=== PATIENT | female | born 1945 | race Caucasian/White ===

== ENCOUNTER 2023-08-25 11:45 | Inpatient (IN) | payer OTHER ==
[2023-08-25 12:40] LABS: Absolute Lymphocytes (CBC) 0.9 K/uL (0.7-4.9); Hematocrit 42.6 % (36.0-45.0); Lymphocytes % 16.3 % (15.3-44.8); MCV 89.1 fL (80-100); MPV 9.3 fL (7.6-11.3); Platelets 229 thou/uL (152-406); RBC Red Blood Cell Count 4.78 M/uL (3.86-4.86)
[2023-08-25 12:58] LABS: Albumin 3.6 g/dL (3.4-5.0); Bilirubin Direct 0.4 mg/dL (0-0.2); Bilirubin Indirect, Calculated 0.5 mg/dL (0.2-0.8); Bilirubin Total 0.9 mg/dL (0.2-1.0); Magnesium 1.7 mg/dL (1.6-2.4); Potassium 4.6 mEq/L (3.5-5.1); Protein, Total 7.1 g/dL (6.4-8.2)
[2023-08-25 13:09] LABS: Troponin High Sensitivity 74.1 pg/mL (<58.9)
--- NOTE | 2023-08-25 13:53 | RAD REPORT ---
EXAM DESCRIPTION: RAD - Chest Single View - 08/25/2023 1:33 pm CLINICAL HISTORY: CONGESTION Chest pain. COMPARISON: No comparisons FINDINGS: Portable technique limits examination quality. Titl-nj-umafdizd pulmonary edema suspected. The heart is significantly enlarged. Trace right and smal l left pleural effusion. IMPRESSION: Moderate CHF versus volume overload pattern.
--- NOTE | 2023-08-25 14:33 | RAD REPORT ---
EXAM DESCRIPTION: CT - Chest For Pe Angio - 08/25/2023 2:13 pm CLINICAL HISTORY: Chest pain. DYSPNEA COMPARISON: Chest Single View dated 08/25/2023 TECHNIQUE: CT angiogram of the pulmonary arteries was performed with MIP. All CT scans are performed using dose optimization technique as appropriate and may include automated exposure control or mA/KV adjustment according to patient size. FINDINGS: No evidence of pulmonary thromboembolism. No acute aortic finding demonstrated. Moderate pulmonary edema. Small bilateral pleural effusions and small pericardial effusion. Cardiac size is significantly enlar ged. No concerning bony finding. IMPRESSION: No evidence of pulmonary thromboembolism. Moderate to significant CHF pattern.
[2023-08-25] MEDS ORDERED: FUROSEMIDE 40 MG/4 ML VIAL ONE ×2 (15:05→16:48)
--- NOTE | 2023-08-25 16:27 | P.HP ---
Certification for Inpatient Patient admitted to: Inpatient With expected LOS: >2 Midnights Patient will require the following post-hospital care: None Practitioner: I am a practitioner with admitting privileges, knowledge of patient current condition, hospital course, and medical plan of care. Services: Services provided to patient in accordance with Admission requirements found in Title 42 Section 412.3 of the Code of Federal Regulations Patient History Date of Service: 08/25/23 Reason for admission: New onset CHF/A-fib History of Present Illness: 78-year-old female with history of qcu-bwljwox-rvkdewybf diabetes, hypertension presents to the emergency department with chief complaint of shortness of breath progressing over the course of the last 1 week. Of note she also has significant edema of her lower extremities which she reports has been going on for about 2 years but significantly worse than normal. She was evaluated in the emergency department her labs are significant for D- dimer of 1068 creatinine 1.53 GFR 35 BUN 23-to be troponin 74.1 BNP 19,442 CTA of the chest was performed given shortness of breath, hypoxia and elevated D -dimer which revealed no evidence of PE, moderate to significant CHF pattern. Patient with 2-3+ pitting edema lower extremities. EKG also shows atrial fibrillation which would be new onset for her with a rate of around 100. ED very wishes to admit for further management of new onset CHF/atrial fibrillation - Past Medical/Surgical History -: Hypertension -: Gbx-rdwebyr-cbwlowkkt diabetes -: Tubal ligation Psychosocial/ Personal History: Lives at home with family - Family History Family History: Reviewed- Non-Contributory - Social History Smoking Status: Current every day smoker Counseled patient to stop smoking for: less than 10 minutes Alcohol use: No CD- Drugs: No Caffeine use: Yes Place of Residence: Home Review of Systems 10-point ROS is otherwise unremarkable Respiratory: Cough, Shortness of Breath, SOB with Excertion Cardiovascular: Edema Physical Examination - Physical Exam General: Alert, In no apparent distress, Oriented x3 HEENT: Atraumatic, PERRLA, Mucous membr. moist/pink Neck: Supple Respiratory: Normal air movement, Diminished, Crackles/rales Cardiovascular: Normal S1 S2, Edema (2+ edema bilateral lower extremities), Irregular heart rate/rhythm (A-fib rate 100) Gastrointestinal: Normal bowel sounds, No tenderness Musculoskeletal: No tenderness Integumentary: No rashes Neurological: Normal speech, Normal strength at 5/5 x4 extr, Normal tone, Normal affect - Studies Laboratory Data (last 24 hrs) 08/25/23 08/25/23 12:24 12:24 WBC 5.70 Hgb 14.0 Hct 42.6 Plt Count 229 Sodium 137 Potassium 4.6 BUN 23 H Creatinine 1.53 H Glucose 97 Magnesium 1.7 Total Bilirubin 0.9 AST 14 L ALT 25 Alkaline Phosphatase 81 Assessment and Plan - Plan Assessment: Acute hypoxic respiratory failure Acute/new onset CHFunknown EF Elevated troponin New onset atrial fibrillation with rapid ventricular response Diabetes mellitus type 0gta-ybzxjti-nrzqnizwc Acute kidney injury Tobacco use disorder Plan: Acute hypoxic respiratory failure Acute/new onset CHFunknown EF Elevated troponin Room air sats 88% per chart in ED Denies ever having echocardiogram in the past Is prescribed Lasix 20mg daily at home Continue with IV Lasix 40 mg twice daily for diuresis Cardiology consult and echocardiogram in place Suspect demand ischemia, denies chest pain, will trend troponins and monitor on telemetry New onset atrial fibrillation with rapid ventricular response [id number] 2 score 3 warranting anticoagulationLovenox ordered QTc 485 rate around 100 bpm Echocardiogram and cardiology consult in place, telemetry ordered Diabetes mellitus type 2pwh-fyfmpvz-tqcykwjvo ACHS Accu-Chek, sliding scale insulin A1c in the morning Acute kidney injury Possibly cardiorenal syndrome Continue diuresis overnight, recheck chemistry in the morning Consult nephrology if there is worsening Tobacco use disorder Counseled on need for cessation Smokes a pack a day DVT PPX: Therapeutic Lovenox Code status: Full Discharge Plan: Home Plan to discharge in: Greater than 2 days - Advance Directives Does patient have a Living Will: No Does patient have a Durable POA for Healthcare: No - Code Status/Comfort Care Code Status Assessed: Yes (Full code) Critical Care: No Time Spent Managing Pts Care (In Minutes): 70
[2023-08-25] MEDS ORDERED: ENOXAPARIN 80 MG/0.8 ML SQ ONE (16:32)
--- NOTE | 2023-08-25 16:36 | EDPHYS ---
Physician Documentation [facility] Name: Jewels Henriquez Age: 78 yrs Sex: Female : 1945 Arrival Date: 08/25/2023 Time: 11:45 Bed 12 Private MD: ED Physician Justin Varner HPI: 08/25 17:42 This 78 yrs old Female presents to ER via Wheelchair with complaints of Breathing kdr Difficulty. 17:42 Patient complains of increasing shortness of breath for the last week. She also has kdr some cough but no fever. Patient has been previously vaccinated for COVID. Patient otherwise is in her usual state of health. Family also brought to my attention to the bilateral lower extremity edema, ecchymosis and venous stasis.. Onset: The symptoms/episode began/occurred gradually, 1 week(s) ago. Severity of symptoms: At their worst the symptoms were mild moderate just prior to arrival, in the emergency department the symptoms are unchanged. The patient has not experienced similar symptoms in the past. The patient has not recently seen a physician. 17:42 Patient may be poorly compliant with her medication regimen. kdr Historical: - Allergies: 11:50 No Known Allergies; ll1 - PMHx: 11:50 Diabetes mellitus; Hypertensive disorder; ll1 - PSHx: 11:50 None; ll1 - Immunization history:: Adult Immunizations up to date. - Social history:: Smoking status: Patient reports the use of cigarette tobacco products, smokes one pack cigarettes per day. ROS: 17:42 Constitutional: Negative for fever, chills, and weight loss, Eyes: Negative for injury, kdr pain, redness, and discharge, ENT: Negative for injury, pain, and discharge, Neck: Negative for injury, pain, and swelling, Cardiovascular: Negative for chest pain, palpitations, and edema, Abdomen/GI: Negative for abdominal pain, nausea, vomiting, diarrhea, and constipation, Back: Negative for injury and pain, : Negative for injury, bleeding, discharge, and swelling, MS/Extremity: Negative for injury and deformity, Skin: Negative for injury, rash, and discoloration, Neuro: Negative for headache, weakness, numbness, tingling, and seizure activity. Psych: Negative for depression, anxiety, suicide ideation, homicidal ideation, and hallucinations, Allergy/Immunology: Negative for hives, rash, and allergies, Endocrine: Negative for neck swelling, polydipsia, polyuria, polyphagia, and marked weight changes, Hematologic/Lymphatic: Negative for swollen nodes, abnormal bleeding, and unusual bruising, 17:42 Respiratory: Positive for cough, dyspnea on exertion, shortness of breath, Negative for hemoptysis, orthopnea, pleurisy, wheezing, Exam: 17:42 Constitutional: This is a well developed, well nourished patient who is awake, alert, kdr and in no acute distress. Head/Face: Normocephalic, atraumatic. Eyes: Pupils equal round and reactive to light, extra-ocular motions intact. Lids and lashes normal. Conjunctiva and sclera are non-icteric and not injected. Cornea within normal limits. Periorbital areas with no swelling, redness, or edema. Neck: Trachea midline, no thyromegaly or masses palpated, and no cervical lymphadenopathy. Supple, full range of motion without nuchal rigidity, or vertebral point tenderness. No Meningismus. Chest/axilla: Normal chest wall appearance and motion. Nontender with no deformity. No lesions are appreciated. Cardiovascular: Regular rate and rhythm with a normal S1 and S2. No gallops, murmurs, or rubs. Normal PMI, no JVD. No pulse deficits. Abdomen/GI: Soft, non-tender, with normal bowel sounds. No distension or tympany. No guarding or rebound. No evidence of tenderness throughout. Back: No spinal tenderness. No costovertebral tenderness. Full range of motion. Skin: Warm, dry with normal turgor. Normal color with no rashes, no lesions, and no evidence of cellulitis. MS/ Extremity: Pulses equal, no cyanosis. Neurovascular intact. Full, normal range of motion. Neuro: Awake and alert, GCS 15, oriented to person, place, time, and situation. Cranial nerves II-XII grossly intact. Motor strength 5/5 in all extremities. Sensory grossly intact. Cerebellar exam normal. Normal gait. Psych: Awake, alert, with orientation to person, place and time. Behavior, mood, and affect are within normal limits. 17:42 Respiratory: mild respiratory distress is noted, With exertion especially, Respirations: normal, Breath sounds: rales, that are moderate, are scattered, rhonchi, that are mild, are scattered, Vital Signs: 11:51 BP 120 / 81; Pulse 96; Resp 24; Temp 97.3; Pulse Ox 95% on R/A; Weight 80.74 kg; Height ll1 5 ft. 6 in. ; Pain 0/10; 14:31 BP 116 / 74; Pulse 106; Resp 22; Pulse Ox 97% on 2 lpm NC; cm10 15:00 BP 120 / 79; Pulse 106; Resp 22; Pulse Ox 97% on 2 lpm NC; cm10 15:30 BP 123 / 77; Pulse 109; Resp 20; Pulse Ox 96% on 2 lpm NC; cm10 16:00 BP 131 / 91; Pulse 115; Resp 20; Pulse Ox 95% on 2 lpm NC; cm10 16:30 BP 129 / 97; Pulse 108; Resp 18; Pulse Ox 94% on 2 lpm NC; cm10 17:00 BP 127 / 85; Pulse 118; Resp 22; Pulse Ox 92% on 4 lpm NC; cm10 17:30 BP 116 / 68; Pulse 116; Resp 22; Pulse Ox 96% on BiPAP; cm10 18:00 BP 111 / 70; Pulse 97; Resp 23; Pulse Ox 97% on BiPAP; cm10 19:57 BP 127 / 83; Pulse 89; Resp 18; Pulse Ox 98% ; cp4 20:04 BP 114 / 85; Pulse 87; Resp 18; Pulse Ox 97% on BiPAP; cm10 11:51 Body Mass Index 28.73 (80.74 kg, 167.64 cm) ll1 11:51 Pain Scale: Adult ll1 MDM: 16:35 Patient medically screened. kdr 17:42 Data reviewed: vital signs, nurses notes, lab test result(s), radiologic studies. kdr 08/25 11:50 Order name: Basic Metabolic Panel; Complete Time: 13:47 kdr 08/25 11:50 Order name: CBC with Diff; Complete Time: 13:47 kdr 08/25 11:50 Order name: D-Dimer; Complete Time: 13:47 kdr 08/25 11:50 Order name: LFT's; Complete Time: 13:47 kdr 08/25 11:50 Order name: Magnesium; Complete Time: 13:47 kdr 08/25 11:50 Order name: NT PRO-BNP; Complete Time: 13:47 kdr 08/25 11:50 Order name: Troponin HS; Complete Time: 13:47 kdr 08/25 11:50 Order name: XRAY Chest (1 view); Complete Time: 14:29 kdr 08/25 13:48 Order name: CT Chest For PE Angio; Complete Time: 14:47 kdr 08/25 11:50 Order name: EKG; Complete Time: 11:51 kdr 08/25 11:50 Order name: Cardiac monitoring; Complete Time: 14:18 kdr 08/25 11:50 Order name: EKG - Nurse/Tech; Complete Time: 14:17 kdr 08/25 11:50 Order name: IV Saline Lock; Complete Time: 12:27 kdr 08/25 11:50 Order name: Labs collected and sent; Complete Time: 12:27 kdr 08/25 11:50 Order name: O2 Per Protocol; Complete Time: 14:17 kdr 08/25 11:50 Order name: O2 Sat Monitoring; Complete Time: 14:17 kdr 08/25 16:50 Order name: Nguyne; Complete Time: 17:09 7 Administered Medications: 14:42 CANCELLED (Physician Discretion): enoxaparin1 mg/kg Sub-Q once hb 15:12 Drug: Furosemide IVP 40 mg IVP once; give over 2 minutes Route: IVP; Site: right cm10 antecubital; 18:09 Follow up: Response: No adverse reaction cm10 16:45 Drug: Enoxaparin Sub-Q 1 mg/kg Sub-Q once Route: Sub-Q; Site: abdomen; jl7 18:09 Follow up: Response: No adverse reaction cm10 17:09 Drug: Furosemide IVP 40 mg IVP once; give over 2 minutes Route: IVP; Site: right cm10 antecubital; 18:09 Follow up: Response: No adverse reaction cm10 17:34 Drug: amiodarone IVPB 150 mg 100 ml IVPB once over 10 mins; (mix in D5W) Volume: 100 cm10 ml; Route: IVPB; Infused Over: 10 mins; Site: left forearm; 18:09 Follow up: Response: No adverse reaction; IV Status: Completed infusion; IV Intake: cm10 100ml 18:08 Drug: amiodarone IVPB 900 mg, D5W IV 500 ml IVPB at 1 mg/min continuous; for 6 hrs, cm10 then change to 0.5 mg/min Route: IVPB; Rate: 1 mg/min; Site: left forearm; 20:00 Follow up: Response: No adverse reaction; IV Status: Infusion continued upon admission cm10 Disposition Summary: 08/25/23 16:35 Hospitalization Ordered Notes: Hospitalization Status: Inpatient Admission kdr Provider: Mann Villarreal Condition: Fair kdr Problem: new kdr Symptoms: have improved kdr Bed/Room Type: Standard kdr Location: Telemetry/MedSurg (Inpatient)(08/25/23 19:48) cg Room Assignment: [facility](08/25/23 19:48) Diagnosis - Heart failure, unspecified kdr - Unspecified atrial fibrillation kdr - Diabetes Mellitus kdr Forms: - Medication Reconciliation Form kdr - SBAR form kdr - Leadership Thank You Letter kdr Signatures: Dispatcher [employer] EDMS Justin Varner MD MD kdr David Kan, COMPUTERIZED TABLE CUTTER-C COMPUTERIZED TABLE CUTTER-Cla1 Guerda Marques RN RN cg Alyce Crouch RN RN hb Clifford Laguna RN RN jl7 Zoey Pennington RN RN ll1 Khalida Cook RN RN cm10 Corrections: (The following items were deleted from the chart) 14:42 14:29 Enoxaparin Sub-Q 1 mg/kg Sub-Q once ordered. kdr hb 14:42 14:42 Enoxaparin Sub-Q 1 mg/kg Sub-Q once ordered. hb hb 17:20 16:35 Telemetry/MedSurg (Inpatient) kdr hb 17:20 16:35 kdr hb 19:48 17:20 [facility] ER HOLD hb cg 19:48 17:20 ERHOLD- hb cg
--- NOTE | 2023-08-25 16:36 | ER ---
Nurse's Notes [facility] Name: Jewels Henriquez Age: 78 yrs Sex: Female : 1945 Arrival Date: 08/25/2023 Time: 11:45 Bed 12 Private MD: Diagnosis: Heart failure, unspecified;Unspecified atrial fibrillation;Diabetes Mellitus Presentation: 08/25 11:51 Coronavirus screen: Vaccine status: Patient reports receiving the 2nd dose of the covid ll1 vaccine. Client denies travel out of the [place] in the last 14 days. cough unrelated to allergies, difficulty breathing, shortness of breath, Client presents with at least one sign or symptom that may indicate coronavirus-19. Standard/surgical mask placed on the client. Ebola Screen: Patient denies travel to an Ebola-affected area in the 21 days before illness onset. 11:51 Method Of Arrival: Wheelchair [facility] 12:15 Chief complaint: Patient states: SOB for 1 week. Slight cough. No fever. Coronavirus hb screen: Vaccine status: Patient reports receiving the 2nd dose of the covid vaccine. Client denies travel out of the [place] in the last 14 days. cough unrelated to allergies, difficulty breathing, shortness of breath. Ebola Screen: Patient denies travel to an Ebola-affected area in the 21 days before illness onset. Initial Sepsis Screen: Does the patient meet any 2 criteria? No. Patient's initial sepsis screen is negative. Does the patient have a suspected source of infection? Yes: Productive cough/pneumonia. Risk Assessment: Do you want to hurt yourself or someone else? Patient reports no desire to harm self or others. Onset of symptoms was August 19, 2023. 12:15 Method Of Arrival: Wheelchair 12:15 Acuity: DAVE 3 hb 17:09 Acuity: DAVE 2 cm10 Triage Assessment: 12:16 General: Appears uncomfortable, ill, Behavior is calm, cooperative, appropriate for hb age. Pain: Denies pain. Neuro: Reports weakness. Respiratory: Reports shortness of breath cough that is labored breathing. 18:14 Respiratory: Onset: The symptoms/episode began/occurred 1 week, the patient has cm10 moderate shortness of breath. Historical: - Allergies: 11:50 No Known Allergies; ll1 - PMHx: 11:50 Diabetes mellitus; Hypertensive disorder; ll1 - PSHx: 11:50 None; ll1 - Immunization history:: Adult Immunizations up to date. - Social history:: Smoking status: Patient reports the use of cigarette tobacco products, smokes one pack cigarettes per day. Screenin:32 [facility] ED Fall Risk Assessment (Adult) History of falling in the last 3 months, cm10 including since admission No falls in past 3 months (0 pts) Confusion or Disorientation No (0 pts) Intoxicated or Sedated No (0 pts) Impaired Gait Yes (1 pt) Mobility Assist Device Used Yes (1 pt) Altered Elimination No (0 pt) Score/Fall Risk Level 0 - 2 = Low Risk Oriented to surroundings, Maintained a safe environment, Hourly rounding (assess needs \T\ fall precautionary measures) done. Abuse screen: Denies threats or abuse. Denies injuries from another. Nutritional screening: No deficits noted. Tuberculosis screening: No symptoms or risk factors identified. Assessment: 14:00 Reassessment: Pt transferred from wheelchair to stretcher and patient became short of cm10 breath. Pt's O2 sat dropped to 88% and pt complaining of shortness of breath. Pt placed on 2L via NC and O2 sat improved. 14:00 General: Appears in no apparent distress. uncomfortable, Behavior is calm, cooperative. cm10 Neuro: No deficits noted. Level of Consciousness is awake, alert, obeys commands, Oriented to person, place, time, situation. Cardiovascular: Reports shortness of breath, Denies chest pain, Patient's skin is warm and dry. Rhythm is atrial fibrillation. Respiratory: Airway is patent Respiratory effort is even, unlabored, Respiratory pattern is regular, symmetrical, Breath sounds are diminished bilaterally. GI: No deficits noted. No signs and/or symptoms were reported involving the gastrointestinal system. : No deficits noted. No signs and/or symptoms were reported regarding the genitourinary system. EENT: No signs and/or symptoms were reported regarding the EENT system. Derm: No deficits noted. No signs and/or symptoms reported regarding the dermatologic system. 15:12 Reassessment: Pt changed into a hospital gown and purewick placed. Pt noted to have cm10 swelling to her bilateral legs and feet. 17:10 Reassessment: Pt continues to have shortness of breath. Dr. Varner made aware. Pt cm10 medicated per OCT. Nguyen catheter inserted and pts O2 increased to 4L via NC. 17:23 Reassessment: Pt continues to have shortness of breath. Respiratory called to place pt cm10 on BiPap. 17:34 Reassessment: Pt placed on bipap at this time. cm10 18:13 Reassessment: Pt tolerating BiPap well at this time. Pt states that her shortness of cm10 breath has improved. Vital Signs: 11:51 BP 120 / 81; Pulse 96; Resp 24; Temp 97.3; Pulse Ox 95% on R/A; Weight 80.74 kg; Height ll1 5 ft. 6 in. ; Pain 0/10; 14:31 BP 116 / 74; Pulse 106; Resp 22; Pulse Ox 97% on 2 lpm NC; cm10 15:00 BP 120 / 79; Pulse 106; Resp 22; Pulse Ox 97% on 2 lpm NC; cm10 15:30 BP 123 / 77; Pulse 109; Resp 20; Pulse Ox 96% on 2 lpm NC; cm10 16:00 BP 131 / 91; Pulse 115; Resp 20; Pulse Ox 95% on 2 lpm NC; cm10 16:30 BP 129 / 97; Pulse 108; Resp 18; Pulse Ox 94% on 2 lpm NC; cm10 17:00 BP 127 / 85; Pulse 118; Resp 22; Pulse Ox 92% on 4 lpm NC; cm10 17:30 BP 116 / 68; Pulse 116; Resp 22; Pulse Ox 96% on BiPAP; cm10 18:00 BP 111 / 70; Pulse 97; Resp 23; Pulse Ox 97% on BiPAP; cm10 19:57 BP 127 / 83; Pulse 89; Resp 18; Pulse Ox 98% ; cp4 20:04 BP 114 / 85; Pulse 87; Resp 18; Pulse Ox 97% on BiPAP; cm10 11:51 Body Mass Index 28.73 (80.74 kg, 167.64 cm) ll1 11:51 Pain Scale: Adult ll1 Vitals: 14:31 Cardiac Rhythm Assessment Atrial fibrillation. cm10 ED Course: 11:46 Patient arrived in ED. im 11:49 Justin Varner MD is Attending Physician. kdr 11:51 Arm band placed on. ll1 12:16 Triage completed. hb 12:24 Inserted saline lock: 20 gauge in right antecubital area, using aseptic technique. zm Blood collected. 12:27 Basic Metabolic Panel Sent. zm 12:27 CBC with Diff Sent. zm 12:27 D-Dimer Sent. zm 12:27 LFT's Sent. zm 12:27 Magnesium Sent. zm 12:27 NT PRO-BNP Sent. zm 12:27 Troponin HS Sent. zm 13:34 XRAY Chest (1 view) In Process Unspecified. EDMS 13:39 Khalida Cook, RN is Primary Nurse. cm10 14:15 CT Chest For PE Angio In Process Unspecified. EDMS 14:33 Patient has correct armband on for positive identification. Bed in low position. Call cm10 light in reach. Side rails up X2. Provided Education on: ER process and procedures. . Client placed on continuous cardiac and pulse oximetry monitoring. NIBP monitoring applied. 16:32 Mann Villarreal MD is Hospitalizing Provider. kdr 17:08 Nguyen cath inserted, using sterile technique, 16 Fr., by nc, balloon inflated, to cm10 gravity drainage, returned clear yellow urine. Patient tolerated well. Inserted saline lock: 22 gauge in left forearm, using aseptic technique. 19:31 Anna Gilliam is Primary Nurse. cp4 19:57 No provider procedures requiring assistance completed. Patient admitted, IV remains in cp4 place. Administered Medications: 14:42 CANCELLED (Physician Discretion): enoxaparin1 mg/kg Sub-Q once hb 15:12 Drug: Furosemide IVP 40 mg IVP once; give over 2 minutes Route: IVP; Site: right cm10 antecubital; 18:09 Follow up: Response: No adverse reaction cm10 16:45 Drug: Enoxaparin Sub-Q 1 mg/kg Sub-Q once Route: Sub-Q; Site: abdomen; jl7 18:09 Follow up: Response: No adverse reaction cm10 17:09 Drug: Furosemide IVP 40 mg IVP once; give over 2 minutes Route: IVP; Site: right cm10 antecubital; 18:09 Follow up: Response: No adverse reaction cm10 17:34 Drug: amiodarone IVPB 150 mg 100 ml IVPB once over 10 mins; (mix in D5W) Volume: 100 cm10 ml; Route: IVPB; Infused Over: 10 mins; Site: left forearm; 18:09 Follow up: Response: No adverse reaction; IV Status: Completed infusion; IV Intake: cm10 100ml 18:08 Drug: amiodarone IVPB 900 mg, D5W IV 500 ml IVPB at 1 mg/min continuous; for 6 hrs, cm10 then change to 0.5 mg/min Route: IVPB; Rate: 1 mg/min; Site: left forearm; 20:00 Follow up: Response: No adverse reaction; IV Status: Infusion continued upon admission cm10 Medication: 14:32 VIS not applicable for this client. cm10 Intake: 18:09 IV: 100ml; Total: 100ml. cm10 Output: 17:10 Urine: 200ml (Voided); Total: 200ml. cm10 17:10 Urine: 600ml (Nguyen); Total: 800ml. cm10 Outcome: 16:35 Decision to Hospitalize by Provider. kdr 19:57 Condition: stable cp4 19:57 Instructed on the need for admit, 19:59 Admitted to Tele accompanied by nurse, via stretcher, room 429, with oxygen, Report cm10 called to KASIA Palacios 20:14 Patient left the ED. cp4 Signatures: Dispatcher [employer] EDMS Justin Varner MD MD kdr Baxter, Heather, RN RN hb Leal, Jahala, RN RN Zoey Negro RN RN ll1 Edith Cook Itzel im Martinez, Clarissa RN RN cm10 Anna Gilliam cp4 Corrections: (The following items were deleted from the chart) 12:24 12:15 BP 183 / 106; Resp 24bpm; hb ll1 12:24 11:51 BP 120 / 81; Pulse 96bpm; Resp 24bpm; Pulse Ox 95% RA; Temp 97.3F; 80.74 kg; ll1 Height 5 ft. 6 in.; BMI: 28.7; Pain 0/10, Adult; ll1 20:00 19:57 Admitted to Med/surg accompanied by tech, via stretcher, cp4 cm10
[2023-08-25] MEDS ORDERED: AMIODARONE HCL 150 MG in D5W 100 ML IV STA (16:58)
[2023-08-25] MEDS ORDERED: AMIODARONE HCL 900 MG in Dextrose 5%-Water 482 ML IV SCH ×4 (17:00)
[2023-08-25] MEDS: INSULIN REGULAR (HUMAN) 100 UNIT/ML SQ SCH ×2 (20:07→21:00)
[2023-08-26] MEDS: INSULIN REGULAR (HUMAN) 100 UNIT/ML SQ SCH ×4 (07:30→21:00)
[2023-08-26] MEDS: FUROSEMIDE 40 MG/4 ML VIAL IV SCH ×2 (08:09→16:01)
[2023-08-26 08:22] LABS: Hematocrit 42.1 % (36.0-45.0); Lymphocytes % 12.9 % (15.3-44.8); MCV 88.5 fL (80-100); MPV 9.7 fL (7.6-11.3); Platelets 215 thou/uL (152-406); RBC Red Blood Cell Count 4.76 M/uL (3.86-4.86)
[2023-08-26 08:47] LABS: Thyroid Stimulating Hormone 2.36 uIU/mL (0.358-3.740)
[2023-08-26 08:49] LABS: Magnesium 1.8 mg/dL (1.6-2.4); Potassium 4.5 mEq/L (3.5-5.1)
[2023-08-26 08:54] LABS: Troponin High Sensitivity 271.2 pg/mL (<58.9)
--- NOTE | 2023-08-26 09:39 | P.PN ---
Date of Service: 08/26/23 Subjective: Required BiPAP overnight Tolerating BiPAP/amiodarone ROS: 10 point ROS as noted above, otherwise negative Physical exam GEN: Alert, oriented, NAD HEENT: Normal conjunctiva, sclera anicteric CV: Atrial fibrillation rate around 100, 1-2+ pitting edema lower extremities Pulm: Bilateral crackles, mild distress on BiPAP ABD: Soft, nontender, nondistended MSK: No joint tenderness Integumentary: No rashes Neuro: Normal speech, normal affect Vitals reviewed Assessment: Acute hypoxic respiratory failure Acute/new onset CHFunknown EF Elevated troponin New onset atrial fibrillation with rapid ventricular response Diabetes mellitus type 2mzs-dlmdqzg-gtsxrdaod Acute kidney injury Tobacco use disorder Plan: Acute hypoxic respiratory failure Acute/new onset CHFunknown EF Elevated troponin Room air sats 88% per chart in ED Denies ever having echocardiogram in the past Is prescribed Lasix 20mg daily at home Continue with IV Lasix 40 mg twice daily for diuresis-lower extremity edema improving Nguyen catheter in placeplaced in ED Cardiology consult and echocardiogram in place Suspect demand ischemia, denies chest pain, and monitor on telemetry Currently on BiPAP, wean off as tolerated troponins trending up mildly, now at 271, will trend New onset atrial fibrillation with rapid ventricular response [id number] 2 score 3 warranting anticoagulationLovenox ordered QTc 485 rate around 100 bpm Echocardiogram and cardiology consult in place, telemetry ordered On amiodarone drip, plan to transition to oral after 24 hours Diabetes mellitus type 3dgn-kqtabdc-gnefiazga ACHS Accu-Chek, sliding scale insulin A1c in the morning Acute kidney injury Possibly cardiorenal syndrome Continue diuresis overnight, recheck chemistry in the morning Consult nephrology if there is worsening Tobacco use disorder Counseled on need for cessation Smokes a pack a day DVT PPX: Therapeutic Lovenox 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
[2023-08-26 09:58] LABS: Specific Gravity 1.017 (1.005-1.030); Urine Bacteria None Seen /HPF (<20); Urine Bilirubin NEGATIVE (Negative); Urine Blood 2+ (Negative); Urine Clarity Clear (Clear); Urine Color Light-Yellow (Yellow); Urine Glucose NEGATIVE (Negative); Urine Mucus Slight /HPF (None Seen); Urine Protein TRACE (Negative); Urine RBC 21-50 /HPF (None Seen); Urine Urobilinogen Normal (Normal); Urine WBC Clump Rare /HPF (None Seen)
[2023-08-26] MEDS ORDERED: MORPHINE 2 MG/ML SYR IV ONE (11:14)
--- NOTE | 2023-08-26 13:09 | ECHO ---
HEIGHT: 5 ft 6 in WEIGHT: 178 lb 0.02 oz DATE OF STUDY: 08/26/[address]: David Kan NP 2-DIMENSIONAL: YES M.MODE: YES DOPPLER: YES COLOR FLOW: YES TDS: YES PORTABLE: YES DEFINITY: NO BUBBLE STUDY: NO DIAGNOSIS: NEW ONSET ATRIAL FIBRILLATION, ACUTE CONGESTIVE HEART FAILURE CARDIAC HISTORY: CATHERIZATION: NO SURGERY: NO PROSTHETIC VALVE: NO PACEMAKER: NO MEASUREMENTS (cm) DIASTOLIC (NORMALS) SYSTOLIC (NORMALS) IVSd 1.4 (0.6-1.2) LA Diam 4.8 (1.9-4.0) LVEF 18% LVIDd 4.6 (3.5-5.7) LVIDs 4.2 (2.0-3.5) %FS 8% LVPWd 1.5 (0.6-1.2) Ao Diam 2.9 (2.0-3.7) 2 DIMENSIONAL ASSESSMENT: RIGHT ATRIUM: NORMAL LEFT ATRIUM: IA RIGHT VENTRICLE: NORMAL SIZE & FUNCTION LEFT VENTRICLE: SEVERELY REDUCED EJECTION FRACTION <20% TRICUSPID VALVE: NORMAL MITRAL VALVE: MILD MITRAL REGURGITATION PULMONIC VALVE: AORTIC VALVE: MILD AORTIC STENOSIS WITH NO AORTIC SCLEROSIS PERICARDIAL EFFUSION: NONE AORTIC ROOT: LEFT VENTRICULAR WALL MOTION: DOPPLER/COLOR FLOW: COMMENTS: 1. SEVERELY REDUCED LEFT VENTRICULAR EJECTION FRACTION <20%. 2. RIGHT VENTRICLE NORMAL SIZE AND FUNCTION. 3. MILD MITRAL REGURGITATION. 4. MILD AORTIC STENOSIS WITH NO AORTIC SCLEROSIS. 5. NO PERICARDIAL EFFUSION. TECHNOLOGIST: Lenny SHARPE
[2023-08-26] MEDS: AMIODARONE HCL 900 MG in Dextrose 5%-Water 482 ML IV SCH (15:09)
[2023-08-26] MEDS: ENOXAPARIN 80 MG/0.8 ML SQ SCH (16:01)
[2023-08-26 17:29] VITALS: BMI 28.2
[2023-08-26] MEDS: ALBUTEROL 2.5 MG/3 ML NEB SOL NEB SCH (20:52)
[2023-08-26] MEDS: HYDROCODONE/APAP 5/325 MG TAB PO PRN (21:59)
[2023-08-27] MEDS: IPRATROPIUM BROM 0.5MG/2.5ML NEB SCH ×4 (01:02→19:18)
[2023-08-27] MEDS: ALBUTEROL 2.5 MG/3 ML NEB SOL NEB SCH ×6 (01:02→19:19)
[2023-08-27] MEDS: HYDROCODONE/APAP 5/325 MG TAB PO PRN ×2 (05:57→18:33)
[2023-08-27] MEDS ORDERED: VERAPAMIL HCL 10 MG/4 ML VIAL IV ONE (07:05)
[2023-08-27] MEDS ORDERED: HEPA 1000U/500MLS 2,000 UNIT/1,000 ML BAG IV ONE (07:05)
[2023-08-27] MEDS ORDERED: LIDOCAINE 1% 20 ML MDV ONE (07:05)
[2023-08-27] MEDS ORDERED: NITROGLYCERIN/D5W 25 MG/250 ML BTL IV ONE (07:05)
[2023-08-27] MEDS ORDERED: HEPARIN 5000 UNIT/ML 1 ML VIAL ONE (07:06)
[2023-08-27] MEDS ORDERED: MIDAZOLAM HCL 2 MG/2 ML INJ ONE (07:06)
[2023-08-27] MEDS ORDERED: TICAGRELOR 90 MG TABLET PO ONE (07:06)
[2023-08-27] MEDS ORDERED: FENTANYL CITR 100 MCG/2 ML ONE (07:06)
[2023-08-27] MEDS ORDERED: ASPIRIN 325 MG TAB ONE (07:07)
[2023-08-27] MEDS ORDERED: CLOPIDOGREL 75 MG TABLET ONE (07:07)
[2023-08-27] MEDS ORDERED: ATROPINE SULF 1 MG/10 ML SYR IV ONE (07:07)
[2023-08-27] MEDS ORDERED: HEPARIN 10,000 UNIT/10 ML VIAL IV ONE (07:07)
[2023-08-27] MEDS: INSULIN REGULAR (HUMAN) 100 UNIT/ML SQ SCH ×4 (07:30→21:00)
[2023-08-27] MEDS ORDERED: NA CHLORIDE 0.9% 500 ML ONE (07:36)
[2023-08-27 08:18] LABS: Absolute Lymphocytes (CBC) 0.9 K/uL (0.7-4.9); Hematocrit 45.2 % (36.0-45.0); Lymphocytes % 13.4 % (15.3-44.8); MCV 90.1 fL (80-100); MPV 9.5 fL (7.6-11.3); Platelets 179 thou/uL (152-406); RBC Red Blood Cell Count 5.02 M/uL (3.86-4.86)
[2023-08-27 08:49] LABS: Potassium 4.2 mEq/L (3.5-5.1)
[2023-08-27 08:50] LABS: Magnesium 1.7 mg/dL (1.6-2.4); Troponin High Sensitivity 359.5 pg/mL (<58.9)
--- NOTE | 2023-08-27 09:58 | P.PN ---
Date of Service: 08/27/23 Subjective: Required BiPAP overnight Tolerating BiPAP/amiodarone ROS: 10 point ROS as noted above, otherwise negative Physical exam GEN: Alert, oriented, NAD HEENT: Normal conjunctiva, sclera anicteric CV: Atrial fibrillation rate around 100, 1+ pitting edema lower extremities Pulm: Bilateral crackles, on nasal cannula now ABD: Soft, nontender, nondistended MSK: No joint tenderness Integumentary: No rashes Neuro: Normal speech, normal affect Vitals reviewed Assessment: Acute hypoxic respiratory failure Acute/new onset CHFunknown EF Elevated troponin New onset atrial fibrillation with rapid ventricular response Diabetes mellitus type 3wef-erictsb-yftajyjrk Acute kidney injury Tobacco use disorder Plan: Acute hypoxic respiratory failure Acute/new onset CHFunknown EF Elevated troponin Continue with IV Lasix 40 mg twice daily for diuresis-lower extremity edema improving Nguyen catheter in placeplaced in ED Echocardiogram with 18% EF Trops peaked 422.5 Heart catheterization performed today-no significant CAD, elevated LVEDP 27 mmHg New onset atrial fibrillation with rapid ventricular response [id number] 2 score 3 warranting anticoagulationLovenox ordered QTc 485 rate around 100 bpm Echocardiogram and cardiology consult in place, telemetry ordered On amiodarone drip, plan to transition to oral Diabetes mellitus type 7ijk-pvicegn-adsnvkfgw ACHS Accu-Chek, sliding scale insulin A1c 5.3 Acute kidney injury Nephrology consultation Continue management of acute heart failure Tobacco use disorder Counseled on need for cessation Smokes a pack a day DVT PPX: Therapeutic Lovenox 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
[2023-08-27] MEDS: FUROSEMIDE 40 MG/4 ML VIAL IV SCH ×2 (11:13→16:19)
--- NOTE | 2023-08-27 13:25 | RAD REPORT ---
EXAM DESCRIPTION: Yoanna Single View08/27/2023 1:17 pm CLINICAL HISTORY: sob COMPARISON: August 25, 2024 FINDINGS: Mild worsening in the moderate bilateral pulmonary opacities. Small pleural effusions. Marked cardiomegaly IMPRESSION: Mild worsening in moderate CHF
--- NOTE | 2023-08-27 13:40 | OP ---
Date of Procedure: 08/27/2023 Surgeon: AIMEE GRESHAM Procedures Performed: 1.Selective coronary angiogram. 2.Left heart catheterization. Indication: New drop in ejection fraction and elevated troponin. Access: 1.Right femoral artery 6-Chilean closed with StarClose. 2.Right radial artery 6-Chilean closed with TR band. Complications: None. Bleeding: Less than 20 mL. Anesthesia: Total sedation time was 1 hour. Description Of Procedure: After risks, benefits, and alternatives were explained, the patient agreed to procedure and signed informed consent. The [facility] was [facility], prepped and draped in the usual sterile fashion. Then I accessed right radial artery using a pediatric micropuncture kit, placed a 6-Chilean Slender sheath, and took 5-Chilean [place] 4.0 catheter into the aortic root over a J wire engaged the left main and the right coronary artery, took standard views and the catheter was pushed over the wire into the LV, measured the LVEDP, pullback did not re cord any gradient. Then the catheter was removed. Radial sheath was removed and the femoral sheath was removed. StarClose was used for closure of the femoral sheath and the TR band for the radial she ath. Findings: 1.Left main; large and normal. 2.LAD is normal. 3.Left circumflex; very large and dominant and normal. 4.RCA normal. 5.LVEDP is elevated at 27 mmHg. Conclusion: 1.Normal coronary arteries. 2.Elevated LVEDP. Plan: Medical management and guideline directed medical therapy for heart failure. SR/MODL Voice ID: [id number] Report ID: [id number]
--- NOTE | 2023-08-27 13:43 | EKG ---
Test Date: 2023-08-25 Test Time: 13:56:23 Nonprofit Financial Controller: DORIAN MEASUREMENT RESULTS: Intervals: Rate: 99 ND: QRSD: 122 QT: 378 QTc: 485 [place]: P: ND: QRS: -57 T: 62 INTERPRETIVE STATEMENTS: Atrial fibrillation Left axis deviation Septal infarct, age undetermined Abnormal ECG No previous ECG available for comparison Electronically Signed On 08-27-23 13:39:39 MARKETING GRAPHICS SPECIALIST by Adrien Ortiz
--- NOTE | 2023-08-27 15:14 | P.CNS ---
Date of Consult: 08/27/23 Reason for Consult: Renal failure Requesting Physician: Mann Villarreal Chief Complaint: SOB History of Present Illness: 78F w/ PMHx of Htn, DM2, & chronic BLE edema who p/w a 1-week hx of progressive SOB, found to have new-onset CHF & rapid afib. She is referred to Nephrology for renal failure. Serum creatinine is 1.5 on admission, at 1.8 today. Recent baseline renal function is unclear at this time. She received IV contrast today upon CTPE. CTPE is negative for pulmonary embolism. Troponin positive. BNP significantly elevated. She is receiving IV Lasix. Allergies No Known Allergies Allergy (Unverified 08/25/23 17:05) Home Medications: Diltiazem HCl [Cardizem Cd] 240 mg PO DAILY 08/26/23 Enalapril [Vasotec*] 1 tab PO DAILY 08/26/23 Furosemide [Lasix*] 1 tab PO DAILY 08/26/23 Metformin ER [Glucophage ER*] 1 tab PO DAILY 08/26/23 ePHEDrine sulfate [Bronkaid Max] 25 mg PO BID 08/26/23 - Past Medical/Surgical History Diabetic: Yes -: Hypertension -: Hhr-wwwqkdp-oeuwmuqhp diabetes -: hyperlipedema -: asthma -: CHF -: COPD -: Tubal ligation Psychosocial/ Personal History: Lives at home with family - Social History Smoking Status: Current every day smoker Alcohol use: No CD- Drugs: No Caffeine use: Yes Place of Residence: Home Review of Systems General: Weakness Eyes: Unremarkable ENT: Unremarkable Respiratory: Shortness of Breath, SOB with Excertion Cardiovascular: Unremarkable Gastrointestinal: Unremarkable Genitourinary: Unremarkable Musculoskeletal: Pedal edema Integumentary: Unremarkable Neurological: Unremarkable Physical Examination Temp Pulse Resp BP Pulse Ox 98.0 F 93 H 16 119/78 95 08/27/23 08:55 08/27/23 11:13 08/27/23 10:07 08/27/23 11:13 08/27/23 05:57 General: Other (appears her stated age) HEENT: Atraumatic, Normocephalic Neck: Supple Respiratory: Other (symmetric chest expansion) Cardiovascular: No rubs, No murmurs Gastrointestinal: Soft and benign, No rebound Musculoskeletal: No clubbing, Swelling Integumentary: No warmth Neurological: Normal tone Urinary: Other (no bladder distention) External genitalia: Deferred Rectal: Deferred Conclusions/Impression: # SABINA 2/2 CRS1 vs SABINA on CKD SCr 1.5 on adm, at 1.8 today Recent baseline renal function is unclear at this time Urinalysis with trace proteinuria and hematuria but no pyuria Follow-up CPK & iPTH Cont lasix IV HR control Harvey po fluid intake at least 2L/d Received IV contrast on 08/27. Monitor for contrast-induced nephropathy in the next 2-3 days. # New-onset CHF, afib w/ RVR, acute hypoxic respiratory failure Status post left heart cath on 08/27 with normal coronaries found Per Cardiology Lasix IV Do not limit by mouth fluid intake unless patient develops hyponatremia < 130 meq/L to avoid further SABINA # Hyponatremia Mild, monitor # Htn Cont current med regimen # DM2 Mngt per primary team
[2023-08-27] MEDS ORDERED: ONDANSETRON 4 MG/2 ML VIAL IV PRN (15:59)
[2023-08-27] MEDS: ENOXAPARIN 80 MG/0.8 ML SQ SCH (16:19)
[2023-08-27] MEDS: AMIODARONE HCL 900 MG in Dextrose 5%-Water 482 ML IV SCH (16:34)
[2023-08-27] MEDS ORDERED: AMIODARONE HCL 200 MG TAB PO SCH (21:00)
[2023-08-28] MEDS: ALBUTEROL 2.5 MG/3 ML NEB SOL NEB SCH ×4 (01:25→20:04)
[2023-08-28] MEDS: IPRATROPIUM BROM 0.5MG/2.5ML NEB SCH ×4 (01:25→20:04)
[2023-08-28 06:47] LABS: Absolute Lymphocytes (CBC) 0.7 K/uL (0.7-4.9); Hematocrit 39.8 % (36.0-45.0); Lymphocytes % 8.8 % (15.3-44.8); MPV 9.4 fL (7.6-11.3); Platelets 181 thou/uL (152-406); RBC Red Blood Cell Count 4.52 M/uL (3.86-4.86)
[2023-08-28 06:57] LABS: Magnesium 1.7 mg/dL (1.6-2.4); Potassium 4.1 mEq/L (3.5-5.1)
[2023-08-28] MEDS: INSULIN REGULAR (HUMAN) 100 UNIT/ML SQ SCH ×4 (07:30→20:35)
[2023-08-28] MEDS: APIXABAN 5 MG TABLET PO SCH ×2 (08:44→20:35)
[2023-08-28] MEDS: FUROSEMIDE 40 MG/4 ML VIAL IV SCH ×2 (08:45→17:17)
[2023-08-28] MEDS: AMIODARONE HCL 200 MG TAB PO SCH ×2 (08:45→20:35)
--- NOTE | 2023-08-28 11:43 | P.PN ---
Date of Service: 08/28/23 Subjective: Required BiPAP overnight Tolerating nasal cannula now ROS: 10 point ROS as noted above, otherwise negative Physical exam GEN: Alert, oriented, NAD HEENT: Normal conjunctiva, sclera anicteric CV: Atrial fibrillation rate around 100, 1+ pitting edema lower extremities Pulm: Bilateral crackles, on nasal cannula now ABD: Soft, nontender, nondistended MSK: No joint tenderness Integumentary: No rashes Neuro: Normal speech, normal affect Vitals reviewed Assessment: Acute hypoxic respiratory failure Acute/new onset CHFunknown EF Elevated troponin New onset atrial fibrillation with rapid ventricular response Diabetes mellitus type 2vnu-pyogryz-sewnzypbr Acute kidney injury Tobacco use disorder Plan: Acute hypoxic respiratory failure Acute/new onset CHFunknown EF Elevated troponin Continue with IV Lasix Nguyen catheter in placeplaced in ED Echocardiogram with 18% EF Trops peaked 422.5 Heart catheterization performed 08/27/2023-normal coronaries Continue to wean oxygen New onset atrial fibrillation with rapid ventricular response [id number] 2 score 3 warranting anticoagulation Eliquis ordered QTc 485 rate around 100 bpm Echocardiogram and cardiology consult in place, telemetry ordered On oral amiodarone Has been having multifocal atrial tachycardia at least the last 24 hours Diabetes mellitus type 8yyb-qqmtgod-xzzmvfpsf ACHS Accu-Chek, sliding scale insulin A1c 5.3 Acute kidney injury Nephrology consultation Continue management of acute heart failure Tobacco use disorder Counseled on need for cessation Smokes a pack a day DVT PPX: Eliquis 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
[2023-08-28] MEDS ORDERED: MAGNESIUM SULFATE 1 gm IVPB 1 GM/100 ML BAG IV ONE (13:15)
--- NOTE | 2023-08-28 15:06 | PN ---
Date of Progress Note: 08/28/2023 Subjective: Patient was admitted with acute kidney injury on chronic kidney disease secondary to car diorenal. Patient has CHF exacerbation. Patient was started on diuresis. Physical Examination: General: When I saw the patient, patient was on breathing treatment. Vital Signs: Blood pressure of 104/67, pulse of 90, afebrile. Chest: Crackles bilateral. Heart: S1, S2. Systolic murmur. Abdomen: Soft, nontender. Extremities: Plus edema. Neuro: Alert. No focality. Laboratory Data: Ejection fraction less than 20%. H and H 13.4/39.8. Sodium 135, potassium 4.1, bi carb 27, BUN 31, creatinine 2, calcium 8.4. Magnesium 1.7. Current Medications: The patient is on include: 1.Albuterol. 2.Eliquis. 3.Lasix 40 b.i.d. 4.Magnesium. Assessment And Plan: 1.Acute kidney injury secondary to cardiorenal still over volume. I am going to continue aggressive diuresis. 2.Hypertension. Continue to utilize blood pressure for more diuresis. 3.Respiratory failure secondary to congestive heart failure exacerbation. We will optimize the fluid status. 4.Congestive heart failure with exacerbation as above. LEWIS/BRUNILDA Voice ID: [id number] Report ID: [id number]
[2023-08-28 18:17] LABS: UR PROTEIN 16.2 mg/dL (<11.9); Urine Protein/Creatinine Ratio 0.24 ratio (<0.15)
[2023-08-28] MEDS ORDERED: AMIODARONE HCL 200 MG TAB PO SCH (21:00)
[2023-08-28] MEDS: HYDROCODONE/APAP 5/325 MG TAB PO PRN (21:14)
[2023-08-29] MEDS: IPRATROPIUM BROM 0.5MG/2.5ML NEB SCH ×3 (01:45→13:00)
[2023-08-29] MEDS: ALBUTEROL 2.5 MG/3 ML NEB SOL NEB SCH ×3 (01:45→13:00)
[2023-08-29] MEDS: HYDROCODONE/APAP 5/325 MG TAB PO PRN ×2 (02:14→16:24)
[2023-08-29] MEDS: INSULIN REGULAR (HUMAN) 100 UNIT/ML SQ SCH ×4 (07:30→19:25)
[2023-08-29] MEDS: METOPROLOL TAR 25 MG TAB PO SCH ×2 (07:51→16:24)
[2023-08-29] MEDS: AMIODARONE HCL 200 MG TAB PO SCH ×2 (07:52→19:55)
[2023-08-29] MEDS: FUROSEMIDE 40 MG/4 ML VIAL IV SCH ×2 (07:52→16:24)
[2023-08-29] MEDS: APIXABAN 5 MG TABLET PO SCH ×2 (07:52→19:55)
[2023-08-29 08:15] LABS: Albumin 3.1 g/dL (3.4-5.0); Magnesium 1.9 mg/dL (1.6-2.4); Phosphorus 4.3 mg/dL (2.5-4.9); Potassium 4.1 mEq/L (3.5-5.1)
--- NOTE | 2023-08-29 10:49 | P.PN ---
Date of Service: 08/29/23 Subjective: Required BiPAP overnight Tolerating nasal cannula now ROS: 10 point ROS as noted above, otherwise negative Physical exam GEN: Alert, oriented, NAD HEENT: Normal conjunctiva, sclera anicteric CV: Atrial fibrillation rate around 100, 1+ pitting edema lower extremities Pulm: Bilateral crackles, on nasal cannula now ABD: Soft, nontender, nondistended MSK: No joint tenderness Integumentary: No rashes Neuro: Normal speech, normal affect Vitals reviewed Assessment: Acute hypoxic respiratory failure Acute/new onset CHFunknown EF Elevated troponin New onset atrial fibrillation with rapid ventricular response Diabetes mellitus type 4zru-tydwakl-phidgobab Acute kidney injury Tobacco use disorder Plan: Acute hypoxic respiratory failure Acute/new onset CHFunknown EF Elevated troponin Continue with IV Lasix Nguyen catheter in placeplaced in ED Echocardiogram with 18% EF Trops peaked 422.5 Heart catheterization performed 08/27/2023-normal coronaries Continue to wean oxygen started on metoprolol 12.5 bid holding off on initiation of lizz/arb/mineralcorticoid given SABINA New onset atrial fibrillation with rapid ventricular response [id number] 2 score 3 warranting anticoagulation Eliquis ordered QTc 485 rate around 100 bpm Echocardiogram and cardiology consult in place, telemetry ordered On oral amiodarone Has been having multifocal atrial tachycardia at least the last 24 hours await further recs from cardiology Diabetes mellitus type 4tex-uxuplue-ikcgadfjt ACHS Accu-Chek, sliding scale insulin A1c 5.3 Acute kidney injury Nephrology consultation Continue management of acute heart failure Tobacco use disorder Counseled on need for cessation Smokes a pack a day DVT PPX: Eliquis 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
[2023-08-29] MEDS ORDERED: FUROSEMIDE 40 MG/4 ML VIAL IV ONE (11:00)
--- NOTE | 2023-08-29 11:43 | PN ---
Date of Progress Note: 08/29/2023 Subjective: The patient was admitted to the hospital with acute kidney injury secondary to cardioren al, over volume. The patient was started on diuresis. The patient is feeling better. Physical Examination: Vital Signs: Blood pressure 115/73, pulse of 84, afebrile. Chest: Crackles bilateral. Heart: S1, S2 regular. Abdomen: Soft, nontender. Extremities: Trace edema. Neurologic: Alert. No focality. Laboratory Data: Hemoglobin 13.4. Sodium 135; potassium 4.1; bicarb 29; BUN 34; creatinine 1.9, con tinued to improve. Calcium 8.5, phosphorus 4.3, magnesium 1.9, albumin 3.1, corrected calcium is 9.3 . The patient had urine output of 1800, negative of 700. Current Medications: The patient on include albuterol, Eliquis, amiodarone 200 b.i.d., metoprolol, L asix 40 b.i.d., breathing treatment, magnesium sulfate. Assessment And Plan: 1.Acute kidney injury secondary to cardiorenal. Continue current diuresis. We will give extra dose of Lasix today. 2.Hypertension, controlled, optimal. Continue current treatment. We will utilize blood pressure fo r more diuresis. 3.Congestive heart failure with exacerbation. Continue diuresis as above. 4.Hypomagnesemia, status post supplement, resolved. 5.Hyponatremia secondary to dilutional sodium, trending up. Continue diuresis. 6.Secondary hyperparathyroidism. I am going to start the patient on calcitriol. We will follow up. No need for binder for the time being. RANCHO Voice ID: [id number] Report ID: [id number]
[2023-08-29] MEDS: CALCITROL 0.25 MCG CAP PO SCH (12:59)
[2023-08-30] MEDS: ALBUTEROL 2.5 MG/3 ML NEB SOL NEB PRN (04:30)
[2023-08-30] MEDS: IPRATROPIUM BROM 0.5MG/2.5ML NEB PRN ×2 (04:30→21:01)
[2023-08-30] MEDS: METOPROLOL TAR 25 MG TAB PO SCH ×2 (05:57→17:05)
[2023-08-30 06:56] LABS: Albumin 3.2 g/dL (3.4-5.0); Phosphorus 3.5 mg/dL (2.5-4.9); Potassium 3.7 mEq/L (3.5-5.1)
[2023-08-30] MEDS: INSULIN REGULAR (HUMAN) 100 UNIT/ML SQ SCH ×4 (07:30→19:16)
[2023-08-30] MEDS: APIXABAN 5 MG TABLET PO SCH ×2 (07:50→20:06)
[2023-08-30] MEDS: AMIODARONE HCL 200 MG TAB PO SCH ×2 (07:51→20:06)
[2023-08-30] MEDS: FUROSEMIDE 40 MG/4 ML VIAL IV SCH ×2 (07:51→17:05)
--- NOTE | 2023-08-30 13:12 | P.PN ---
Date of Service: 08/30/23 Subjective: Did not require Bipap overnight tolerating NC, weaning down Working with PT ROS: 10 point ROS as noted above, otherwise negative Physical exam GEN: Alert, oriented, NAD HEENT: Normal conjunctiva, sclera anicteric CV: Atrial fibrillation rate around 100, no edema/ Pulm: Bilateral crackles, on nasal cannula now ABD: Soft, nontender, nondistended MSK: No joint tenderness Integumentary: No rashes Neuro: Normal speech, normal affect Vitals reviewed Assessment: Acute hypoxic respiratory failure Acute/new onset CHFunknown EF Elevated troponin New onset atrial fibrillation with rapid ventricular response Diabetes mellitus type 1seg-ujassct-rqdqnhxbw Acute kidney injury Tobacco use disorder Plan: Acute hypoxic respiratory failure Acute/new onset CHFunknown EF Elevated troponin Continue with IV Lasix Nguyen catheter in placeplaced in ED Echocardiogram with 18% EF Trops peaked 422.5 Heart catheterization performed 08/27/2023-normal coronaries Continue to wean oxygen started on metoprolol 12.5 bid, up titrated to 25mg bid 08/30 holding off on initiation of lizz/arb/mineralcorticoid given SABINA New onset atrial fibrillation with rapid ventricular response [id number] 2 score 3 warranting anticoagulation Eliquis ordered QTc 485 rate around 100 bpm Echocardiogram and cardiology consult in place, telemetry ordered On oral amiodarone Has been having multifocal atrial tachycardia at least the last 24 hours await further recs from cardiology Diabetes mellitus type 8wmw-stplpvh-vcjngvxuo ACHS Accu-Chek, sliding scale insulin A1c 5.3 Acute kidney injury Nephrology consultation Continue management of acute heart failure Tobacco use disorder Counseled on need for cessation Smokes a pack a day DVT PPX: Eliquis 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
--- NOTE | 2023-08-30 20:01 | PN ---
Date of Progress Note: 08/30/2023 Subjective: Seen by bedside. Doing clinically well. Appears to be breathing much better, more euvo lemic. Review of Systems: No chest pain, shortness of breath, orthopnea, or cough. No nausea, vomiting, or diarrhea. All othe r systems were reviewed, they were negative. Objective: Vital Signs: Reviewed. Head and Neck: Pupils are equal, reactive to light. Intact eye movements. No JVD. No cervical lym phadenopathy. Neck is supple. Thyroid is not enlarged. Lungs: Clear to auscultation bilaterally. No rhonchi, wheezing, or crackles. No accessory muscle u se. Heart: Regular rate and rhythm. No extra sounds. Abdomen: Soft, nontender. Bowel sounds positive. No organomegaly. No masses or hernia. No rigidi ty or rebound. Extremities: No edema, clubbing, or cyanosis. Intact pulses. Skin: No rash or nodule. Neurologic: Alert, awake, oriented x3. No acute focal deficits appreciated. Investigations: BUN 36, creatinine 1.86. Assessment And Recommendations: 1.Severe systolic heart failure with acute exacerbation. She appears to be getting euvolemic. Swit ch Lasix to by mouth 40 mg p.o. twice a day and recommend to continue metoprolol and add Entresto 24/ 26 mg twice a day if blood pressure tolerates. 2.Atrial fibrillation versus tachycardia. Heart rate is controlled. If she continues to be in this rhythm, we will plan for cardioversion which can be done as an outpatient continue amioda олег and metoprolol for now and will allow some time for possible conversion of medications and if th is does not happen, we will plan for KT-guided cardioversion as an outpatient. We will continue Eliquis. HARRIS/BRUNILDA Voice ID: [id number] Report ID: [id number]
--- NOTE | 2023-08-30 21:43 | CON ---
Date of Consultation: 08/26/2023 Reason For Consultation: Heart failure. History Of Present Illness: A 78-year-old female with past medical history of diabetes, hypertension , who presented to the emergency room with shortness of breath, lower extremity edema. Denies having any chest pain. She has orthopnea, found to be in severe heart failure and found to be in atrial fi brillation with rapid ventricular response, started on amiodarone drip. Heart rate is controlled, st arted on Lasix, and she is breathing significantly better. Past Medical History: As outlined above in the HPI. Medications: Refer to reconciliation sheet for the list. Allergies: NO KNOWN DRUG ALLERGIES. Family History: No premature coronary artery disease or cancer. Social History: She is an ex-smoker. Does not drink or use any drugs. Review of Systems: All systems reviewed and they were negative except as mentioned in the HPI. Physical Examination: Vital Signs: Reviewed. Head and Neck: Pupils are equal, reactive to light. Intact eye movements. No JVD. No cervical lym phadenopathy. Neck is supple. Thyroid is not enlarged. Lungs: Clear to auscultation bilaterally. No rhonchi, rales, or crackles. No accessory muscle use. Heart: Irregular. No extra sounds. Abdomen: Soft, nontender. Bowel sounds positive. No organomegaly. No masses or hernia. No rigidi ty or rebound. Extremities: Edema bilaterally. No clubbing, cyanosis. Intact pulses. Skin: No rash. Neurologic: Alert, awake, oriented x3. No acute focal deficits appreciated. Investigations: Labs were reviewed. Hemoglobin is 14.6, BUN 27, creatinine 1.83. Troponin 359. Assessment/recommendation: 1.Severe systolic heart failure with acute exacerbation. This is a new EF drop. Recommend to wyatt clark Lasix 40 mg IV q.12 hours. Monitor BUN, creatinine, electrolytes, and once she becomes euvolemic and can lay flat, we will plan for coronary angiogram. 2.Elevated troponin, could be due to the heart failure that she needs an ischemia evaluation. Plan for coronary angiogram and to rule out coronary artery disease as a cause of her AF drop. 3.Hypertension, blood pressure controlled. 4.Atrial fibrillation. The rate is controlled. Continue amiodarone, switch to oral. Add metoprolo l 25 mg twice a day and apixaban 5 mg twice a day. I will follow the patient with you. /BRUNILDA Voice ID: [id number] Report ID: [id number]
--- NOTE | 2023-08-31 01:37 | PN ---
Date of Progress Note: 08/30/2023 Chief Complaint: Acute kidney injury, cardiorenal syndrome. Review of Systems: Denies chest pain, palpitation. Physical Examination: Lungs: Clear to auscultation bilaterally. Heart: S1, S2. Abdomen: Soft. Extremities: Slight edema. Impression And Plan: 1.Acute kidney injury secondary to cardiorenal syndrome. Continue diuretics. The patient is on Las ix. 2.Hypertension, controlled. Continue current blood pressure medication. 3.Congestive heart failure, acute on chronic with diastolic dysfunction, on diuretics. Continue to monitor blood pressure and continue metoprolol along with Lasix. 4.Hyponatremia secondary to cardiorenal syndrome. Continue Lasix. 5.Secondary hyperparathyroidism. The patient is on calcitriol. Monitor phosphorus, magnesium, and calcium levels. EB/MODL Voice ID: [id number] Report ID: [id number]
[2023-08-31] MEDS: METOPROLOL TAR 25 MG TAB PO SCH ×2 (06:33→18:18)
[2023-08-31 07:08] LABS: Phosphorus 3.3 mg/dL (2.5-4.9); Potassium 3.6 mEq/L (3.5-5.1)
[2023-08-31] MEDS: INSULIN REGULAR (HUMAN) 100 UNIT/ML SQ SCH ×4 (07:30→19:57)
[2023-08-31] MEDS ORDERED: POTASSIUM CL SA 10 MEQ TAB PO ONE (08:06)
[2023-08-31] MEDS: FUROSEMIDE 40 MG/4 ML VIAL IV SCH ×2 (08:59→18:18)
[2023-08-31] MEDS: APIXABAN 5 MG TABLET PO SCH ×2 (09:01→20:05)
[2023-08-31] MEDS: AMIODARONE HCL 200 MG TAB PO SCH ×2 (09:01→20:05)
[2023-08-31] MEDS: ACETYLCYST 20% 800 MG/4 ML VIAL PO SCH ×2 (09:03→20:05)
[2023-08-31] MEDS: CALCITROL 0.25 MCG CAP PO SCH (12:28)
--- NOTE | 2023-08-31 17:19 | P.PN ---
Date of Service: 08/31/23 Subjective: Still on 3 L nasal cannula She was able to ambulate without oxygen, with oxygen saturation of 94% Now requiring 3 L nasal cannula Will continue to wean overnight ROS: 10 point ROS as noted above, otherwise negative Physical exam GEN: Alert, oriented, NAD HEENT: Normal conjunctiva, sclera anicteric CV: Atrial fibrillation rate controlled, no edema present Pulm: Bilateral crackles, on nasal cannula, coughing ABD: Soft, nontender, nondistended MSK: No joint tenderness Integumentary: No rashes Neuro: Normal speech, normal affect Vitals reviewed Assessment: Acute hypoxic respiratory failure Acute/new onset CHFunknown EF Elevated troponin New onset atrial fibrillation with rapid ventricular response Diabetes mellitus type [id number]-[id number]-ssqfbmjee Acute kidney injury Tobacco use disorder Plan: Acute hypoxic respiratory failure Acute/new onset CHFunknown EF Elevated troponin Continue with IV Lasix Nguyen catheter in placeplaced in ED Echocardiogram with 18% EF Trops peaked 422.5-oer Dr. Ortiz's note "Elevated troponin, could be due to the heart failure that she needs an ischemia evaluation. Plan for coronary angiogram and to rule out coronary artery disease as a cause of her AF drop." Heart catheterization performed 08/27/2023-normal coronaries Continue to wean oxygen, on 3 LNC-will evaluate for home oxygen use started on metoprolol 12.5 bid, up titrated to 25mg bid 08/30 holding off on initiation of lizz/arb/mineralcorticoid given SABINA New onset atrial fibrillation with rapid ventricular response [id number] 2 score 3 warranting anticoagulation Eliquis ordered QTc 485 rate around 100 bpm Echocardiogram and cardiology consult in place, telemetry ordered On oral amiodarone Has been having multifocal atrial tachycardia at least the last 24 hours await further recs from cardiology Diabetes mellitus type 2rxw-[id number]-tcinoagfv ACHS Accu-Chek, sliding scale insulin A1c 5.3 Acute kidney injury Nephrology consultation Continue management of acute heart failure Tobacco use disorder Counseled on need for cessation Smokes a pack a day DVT PPX: Eliquis Code status: Full Dispo: Requesting Acute Rehab Time Spent Managing Pts Care (In Minutes): 25
--- NOTE | 2023-08-31 18:51 | PN ---
Date of Progress Note: 08/31/2023 Subjective: The patient was admitted to the hospital with overvolume, acute kidney injury secondary to cardiorenal. The patient had been diuresed very well, responding very well. Objective: Vital Signs: Blood pressure 119/73, pulse of 74, afebrile. Chest: Crackles on the left base. Heart: S1, S2. Regular. Abdomen: Soft, nontender. Extremities: Trace edema. Neurologic: Alert. No focality. Laboratory Data: Hemoglobin 13.4, sodium 132, potassium 3.6, bicarb 32, BUN 37, creatinine 1.8, GFR 28. Calcium 8.7. Current Medications: The patient on, it includes: 1.Albuterol. 2.Eliquis. 3.Amiodarone 200. 4.Lasix 40 b.i.d. 5.Breathing treatment. Assessment And Plan: 1.Acute kidney injury secondary to cardiorenal, responded to current diuresis dose. I am going to c ontinue current Lasix dose and we will monitor. 2.Hypertension, controlled, optimal. 3.Hypomagnesemia. We will supplement. 4.Hyponatremia, dilutional. Continue diuresis. The patient cleared from the Renal standpoint for discharge planning. RANCHO Voice ID: [id number] Report ID: [id number]
[2023-09-01] MEDS: METOPROLOL TAR 25 MG TAB PO SCH ×2 (05:45→17:22)
[2023-09-01] MEDS: INSULIN REGULAR (HUMAN) 100 UNIT/ML SQ SCH ×4 (07:30→19:17)
[2023-09-01] MEDS: FUROSEMIDE 40 MG/4 ML VIAL IV SCH (09:03)
[2023-09-01] MEDS: AMIODARONE HCL 200 MG TAB PO SCH ×2 (09:03→19:32)
[2023-09-01] MEDS: APIXABAN 5 MG TABLET PO SCH ×2 (09:03→19:32)
[2023-09-01] MEDS: ACETYLCYST 20% 800 MG/4 ML VIAL PO SCH ×2 (09:05→19:32)
--- NOTE | 2023-09-01 13:13 | PN ---
Date of Progress Note: 09/01/2023 Subjective: Patient was admitted to the hospital with acute kidney injury secondary to cardiorenal. The patient is being diuresed aggressively. Patient responded very well. Still requiring oxygenati on. Physical Examination: Vital Signs: Blood pressure 112/72, pulse of 77. Chest: Faint rales on the left base. Heart: S1, S2. Systolic murmur. Abdomen: Soft, nontender. Extremities: Trace edema. Neuro: Alert. No focality. Laboratory Data: Hemoglobin 13.4. Sodium 132, potassium 3.6, bicarb 32, BUN 37, creatinine 1.8. Current Medications: The patient is on include: 1.Amiodarone. 2.Metoprolol. 3.Lasix 40 b.i.d. 4.Zofran. 5.Calcitriol. Assessment And Plan: 1.Acute kidney injury secondary to cardiorenal. No lab today. We will follow up lab tomorrow. I a m going to go ahead and get chest x-ray for better evaluation of her fluid status. 2.I will change her Lasix to p.o. and we will follow up the patient. 3.Hypertension, controlled, optimal. Continue current treatment. 4.Secondary hyperparathyroidism. Continue calcitriol. 5.Hyponatremia, dilutional, resolved. 6.Hypomagnesemia, status post supplement. RANCHO Voice ID: [id number] Report ID: [id number]
--- NOTE | 2023-09-01 13:29 | P.PN ---
Date of Service: 09/01/23 Subjective: She is awake and conversing well Oxygen saturation 91% on 2 L nasal cannula during examination Attempting to wean, walk test today. Working with physical therapy, ambulating in the hallway. ROS: 10 point ROS as noted above, otherwise negative Physical exam GEN: Alert, oriented, NAD HEENT: Normal conjunctiva, sclera anicteric CV: Atrial fibrillation rate controlled, no edema present, systolic murmur Pulm: still with Bilateral crackles, on nasal cannula, coughing ABD: Soft, nontender, nondistended MSK: No joint tenderness Integumentary: No rashes Neuro: Normal speech, normal affect Vitals reviewed Assessment: Acute hypoxic respiratory failure Acute/new onset CHFunknown EF Elevated troponin New onset atrial fibrillation with rapid ventricular response Diabetes mellitus type [id number]-lhpbuhv-vkwxeyqkh Acute kidney injury Tobacco use disorder Plan: Acute hypoxic respiratory failure Acute/new onset CHFunknown EF Elevated troponin Continue with IV Lasix Nguyen catheter in placeplaced in ED Echocardiogram with 18% EF Trops peaked 422.5-per Dr. Ortiz's note "Elevated troponin, could be due to the heart failure that she needs an ischemia evaluation. Plan for coronary angiogram and to rule out coronary artery disease as a cause of her AF drop." Heart catheterization performed 08/27/2023-normal coronaries Continue to wean oxygen, on 3 LNC-will evaluate for home oxygen use started on metoprolol 12.5 bid, up titrated to 25mg bid 08/30 holding off on initiation of lizz/arb/mineralcorticoid given SABINA New onset atrial fibrillation with rapid ventricular response [id number] 2 score 3 warranting anticoagulation Eliquis ordered QTc 485 rate around 100 bpm Echocardiogram and cardiology consult in place, telemetry ordered On oral amiodarone Has been having multifocal atrial tachycardia at least the last 24 hours await further recs from cardiology Diabetes mellitus type 7fut-htawiya-ybbqvcafu ACHS Accu-Chek, sliding scale insulin A1c 5.3 Acute kidney injury Nephrology consultation Continue management of acute heart failure Tobacco use disorder Counseled on need for cessation Smokes a pack a day DVT PPX: Eliquis Code status: Full Dispo: accepted to inpatient rehab on fifth floor, likely bed availability tomorrow Time Spent Managing Pts Care (In Minutes): 22
--- NOTE | 2023-09-01 14:17 | RAD REPORT ---
EXAM DESCRIPTION: Yoanna Single View09/01/2023 1:14 pm CLINICAL HISTORY: Chest pain COMPARISON: August 2023 FINDINGS: Mild to moderate bilateral pulmonary opacities have partially resolved since prior exam. Small bilateral pleural effusions Cardiomegaly IMPRESSION: Mild to moderate CHF
[2023-09-01] MEDS: FUROSEMIDE 40 MG TABLET PO SCH (17:22)
[2023-09-01] MEDS: ALBUTEROL 2.5 MG/3 ML NEB SOL NEB PRN ×2 (21:28→21:30)
[2023-09-01] MEDS: IPRATROPIUM BROM 0.5MG/2.5ML NEB PRN ×2 (21:28→21:30)
[2023-09-02] MEDS: METOPROLOL TAR 25 MG TAB PO SCH (06:21)
[2023-09-02 07:29] LABS: Phosphorus 3.7 mg/dL (2.5-4.9); Potassium 3.6 mEq/L (3.5-5.1)
[2023-09-02] MEDS: INSULIN REGULAR (HUMAN) 100 UNIT/ML SQ SCH ×2 (07:30→11:18)
[2023-09-02] MEDS: AMIODARONE HCL 200 MG TAB PO SCH (07:53)
[2023-09-02] MEDS: FUROSEMIDE 40 MG TABLET PO SCH (07:53)
[2023-09-02] MEDS: APIXABAN 5 MG TABLET PO SCH (07:53)
[2023-09-02 09:32] VITALS: O2SAT 98
[2023-09-02] MEDS: CALCITROL 0.25 MCG CAP PO SCH (11:56)
[2023-09-02 12:30] LABS: SARS-COV-2 RT PCR NEGATIVE (NEGATIVE)
[2023-09-02 12:46] VITALS: BP 104/59; TEMP 97.8
--- NOTE | 2023-09-02 14:51 | P.DS ---
Admission Date: 08/25/23 Discharge Date: 09/02/23 Disposition: TRANSFER TO INPATIENT REHAB Discharge Condition: FAIR Reason for Admission: SOB Brief History of Present Illness: Diagnosis: Acute hypoxic respiratory failure Acute/new onset CHFunknown EF Elevated troponin New onset atrial fibrillation with rapid ventricular response Diabetes mellitus type [id number]-synupxmwg Acute kidney injury Tobacco use disorder HPI 08/25/23 Jewels Henriquez is a 78-year-old female with history of gaj-lgulacu-rthzugljl diabetes and hypertension who presents to the emergency department with chief complaint of shortness of breath progressing over the course of the last 1 week. Of note she also has significant edema of her lower extremities which she reports has been going on for about 2 years but significantly worse than normal. She was evaluated in the emergency department, her labs are significant for D- dimer of 1068, creatinine 1.53, GFR 35, BUN 23, troponin 74.1,and BNP 19,442. CTA of the chest was performed given shortness of breath, hypoxia, and elevated D-dimer which revealed no evidence of PE, moderate to significant CHF pattern. Patient with 2-3+ pitting edema lower extremities. EKG also shows atrial fibrillation which would be new onset for her with a rate of around 100. ED wishes to admit her for further management of new onset CHF/atrial fibrillation. Hospital Course: Jewels Henriquez is a pleasant 78-year-old female with a past medical history significant for Hypertension and DM type 2- NIDDM who was admitted to the [facility] on 08/25/23 for new onset CHF/atrial fibrillation. Jewels presented to the ED with c/o of shortness of breath which had progressed over the course of the one week. She also had significant edema of her lower extremities which she reported has been going on for about 2 years but was significantly worse than normal. Edema has improved this admission with lasix therapy. Dr. Montenegro and Dr. Ortiz were consulted and recommendations were followed. An Echocardiogram resulted with EF of 18%. Per Dr. Ortiz's note "Elevated troponin, could be due to the heart failure that she needs an ischemia evaluation. Plan for coronary angiogram and to rule out coronary artery disease as a cause of her AF drop." LHC performed resulting with normal coranaries. She was started on lasix, metoprolol, amiodarone, and eliquis of which she has tolerated well. A storey was placed for accurate intake and output. Today, her storey has been removed and she was able to void without trouble. Dr. Montenegro has managed her kidney function during lasix treatments. Jefferson, ARB, NSAIDs, and mineralocorticoid steroid were being held with the current SABINA diagnosis. She will contiue to follow Dr. Montenegro for kidney function management. Diabetes mellitus managed with Accuchecks and SSI, she has tolerated this well with resulted Serum glucose and POC accuchecks under 200 daily. Her heart rhythm has converted to normal sinus rhythm with heart rate control in the 60s and 70s, blood pressure is stabilized, she is tolerating p.o. diet, urinating well since Storey was removed, continues on 3 L nasal cannula for oxygen supp lementation, and working well with therapy. Plans to wean oxygen while in inpatient rehab and while working with physical therapy. Jewels smoke one pack of cigarettes daily and smoking cessation education was given. On 09/02/23, Jewels Henriquez was seen on morning rounds and deemed medically stable for discharge. Jewels was discharged with instructions to schedule follow-up appointments with Dr. Montenegro, Dr. Ortiz, and PCP. Jewels was provided prescriptions for metoprolol, lasix, amiodarone, and eliquis. The patient and family members were given the opportunity to ask questions and reported no further questions. Furthermore, all questions were answered to the best of my ability. A copy of this discharge summary will be sent to the above providers to facilitate continuity of care. Today, I personally spent 55 minutes with Jewels Henriquez, of which greater than 50% of the time was spent in patient education, counseling, and coordination of care as described above. Physical exam GEN: Alert, oriented, NAD, conversing well HEENT: Normal conjunctiva, sclera anicteric CV: Atrial fibrillation rate controlled, no edema present, systolic murmur Pulm: still with Bilateral crackles, on nasal cannula, coughing ABD: Soft, nontender, nondistended MSK: No joint tenderness Integumentary: No rashes Neuro: Normal speech, normal affect Vital Signs/Physical Exam: Temp Pulse Resp BP Pulse Ox 97.8 F 65 17 104/59 L 96 09/02/23 12:00 09/02/23 12:00 09/02/23 12:00 09/02/23 12:00 09/02/23 12:00 Laboratory Data at Discharge: WBC 7.70 thou/uL (4.3-10.9) 08/28/23 06:10 Hgb 13.4 g/dL (12.0-15.0) D 08/28/23 06:10 Hct 39.8 % (36.0-45.0) 08/28/23 06:10 Plt Count 181 thou/uL (152-406) 08/28/23 06:10 Sodium 134 mEq/L (136-145) L 09/02/23 06:45 Potassium 3.6 mEq/L (3.5-5.1) 09/02/23 06:45 BUN 41 mg/dL (7-18) H 09/02/23 06:45 Creatinine 1.89 mg/dL (0.55-1.02) H 09/02/23 06:45 Glucose 110 mg/dL (74-106) H 09/02/23 06:45 Phosphorus 3.7 mg/dL (2.5-4.9) 09/02/23 06:45 Magnesium 1.9 mg/dL (1.6-2.4) 08/29/23 07:40 Total Bilirubin 0.9 mg/dL (0.2-1.0) 08/25/23 12:24 AST 14 U/L (15-37) L 08/25/23 12:24 ALT 25 U/L (13-56) 08/25/23 12:24 Alkaline Phosphatase 81 U/L (45-117) 08/25/23 12:24 Home Medications: Enalapril [Vasotec*] 1 tab PO DAILY 08/26/23 Furosemide [Lasix*] 1 tab PO DAILY 08/26/23 Metformin ER [Glucophage ER*] 1 tab PO DAILY 08/26/23 Albuterol Neb [Proventil 0.083% Neb Soln] 2.5 mg NEB [id number] PRN amp 09/02/23 Amiodarone HCl [Cordarone*] 200 mg PO BID tab 09/02/23 Apixaban [Eliquis] 5 mg PO BID 09/02/23 Calcitrol [Rocaltrol*] 0.25 mcg PO Q48H cap 09/02/23 Ipratropium Neb [Atrovent*] 0.5 mg NEB [id number] PRN amp 09/02/23 Metoprolol Tartrate [Lopressor*] 25 mg PO BID 6AM 6PM tab 09/02/23 Physician Discharge Instructions: 1. Please call and schedule a follow-up appointment with your PCP in 3-5 days - Please follow-up with your PCP for medication refills/adjustments 2. Please call and schedule a follow-up appointment with Dr. Montenegro in 3-5 days - continue dialysis as scheduled 3. Follow-up with Dr. Stern in 1 week for further cardiac management 4. 3 L nasal cannula supplemental oxygen, wean as tolerated 5. Continue with rehab and incentive spirometer use 6. Fall precaution 7. Continue renal diet 8. Return to ED if symptoms worsen Diet: Renal Activity: Fall precautions Followup: Elsy Montenegro MD [ACTIVE - CAN ADMIT] - Ren Laguna MD [Primary Care Provider] - Adrien Ortiz MD [ACTIVE - CAN ADMIT] - Time spent managing pt's care (in minutes): 55
--- NOTE | 2023-09-02 20:55 | PN ---
Date of Progress Note: 09/02/2023 Subjective: Patient was admitted with acute kidney injury secondary to cardiorenal, over volume. Pa tient diuresis very well. Patient responded very well to diuresis. Today, patient is on nasal cannu la 2 L. Physical Examination: Vital Signs: Blood pressure 104/59, pulse of 65, afebrile. Chest: Clear to auscultation. Heart: S1, S2. Regular. Abdomen: Soft, nontender. Extremities: No edema. Neuro: Alert. No focality. Laboratory Data: Hemoglobin 13.4. Sodium 134, potassium 3.6, bicarb 33, BUN 41, creatinine 1.8, becky cium 8.7. GFR 27. Current Medications: The patient is on include Lasix 40 mg b.i.d., calcitriol, enalapril, Lasix, met formin, amiodarone. Assessment And Plan: 1.Acute kidney injury secondary to cardiorenal. I am going to continue diurese the patient. Patien t is cleared from the Renal standpoint for discharge planning. 2.Hypertension. Continue to rise blood pressure for more diuresis. 3.Secondary hyperparathyroid. Resume calcitriol. 4.Anemia of chronic kidney disease, stable. 5.Congestive heart failure with exacerbation. We will continue diuresis. Patient is cleared from t he Renal standpoint for discharge planning. To follow up in the office in 2-3 weeks. RANCHO Voice ID: [id number] Report ID: [id number]
== END 2023-09-02 16:06 | DRG 286 ==
LOC: ER 11:45 → ERHOLD 16:05 → 4TH 20:00
PROVIDERS: ADMIT Hospitalist; ATTEND Internal Medicine
PROC: 5A09557 Assistance with Respiratory Ventilation, Greater than 96 Consecutive Hours, Continuous Positive Airway Pressure (ICD-10-PCS; principal; 2023-08-25)
PROC: 4A023N7 Measurement of Cardiac Sampling and Pressure, Left Heart, Percutaneous Approach (ICD-10-PCS; 2023-08-27)
PROC: B2111ZZ Fluoroscopy of Multiple Coronary Arteries using Low Osmolar Contrast (ICD-10-PCS; 2023-08-27)
DX: I11.0 Hypertensive heart disease with heart failure (principal); I50.23 Acute on chronic systolic (congestive) heart failure; J96.01 Acute respiratory failure with hypoxia; N17.9 Acute kidney failure, unspecified; E87.1 Hypo-osmolality and hyponatremia; N25.81 Secondary hyperparathyroidism of renal origin; I48.91 Unspecified atrial fibrillation; E83.42 Hypomagnesemia; E78.5 Hyperlipidemia, unspecified; E11.9 Type 2 diabetes mellitus without complications; J44.9 Chronic obstructive pulmonary disease, unspecified; F17.210 Nicotine dependence, cigarettes, uncomplicated; R77.8 Other specified abnormalities of plasma proteins; R31.9 Hematuria, unspecified; Z98.51 Tubal ligation status; Z11.52 Encounter for screening for COVID-19; Z79.01 Long term (current) use of anticoagulants; Z79.84 Long term (current) use of oral hypoglycemic drugs; Z79.899 Other long term (current) drug therapy
CPT/HCPCS: 0240U; 36415; 51702; 71045; 71275; 76937; 80048; 80069; 80076; 81001; 82550; 82570; 82947; 83036; 83735; 83880; 83935; 83970; 84132; 84156; 84300; 84439; 84443; 84484; 85025; 85379; 93005; 93306; 93458; 94010; 94640; 94660; 94760; 96365; 96366; 96372; 96375; 97116; 97161; 97530; 99152; 99153; 99285; C1893; J0282; J0461; J1644; J1940; J2001; J2250; J2270; J2405; J3010; J3475; J7040; J7060; J7613; J7644; Q9966; Q9967

== ENCOUNTER 2023-09-02 09:56 | Inpatient (IN) | payer OTHER ==
[2023-09-02 16:23] VITALS: BMI 27.8
[2023-09-02] MEDS ORDERED: D10W 250 ML BAG IV PRN (16:36)
[2023-09-02] MEDS ORDERED: GLUCAGON 1 MG/VIAL IM PRN (16:36)
[2023-09-02] MEDS: METOPROLOL TAR 25 MG TAB PO SCH (17:37)
[2023-09-02] MEDS ORDERED: ONDANSETRON 4 MG (ODT) TAB PO PRN (18:28)
[2023-09-02] MEDS ORDERED: IPRATROPIUM BROM 0.5MG/2.5ML NEB PRN (18:28)
[2023-09-02] MEDS ORDERED: ALBUTEROL 2.5 MG/3 ML NEB SOL NEB PRN (18:28)
[2023-09-02] MEDS: [UNRECOGNIZED DRUG - MIXTURE] PO SCH (20:00)
[2023-09-02] MEDS: DOCUSATE NA/SENNA CONC 1 TAB PO PRN (20:18)
[2023-09-02] MEDS: INSULIN REGULAR (HUMAN) 100 UNIT/ML SQ SCH (20:18)
[2023-09-02] MEDS: APIXABAN 5 MG TABLET PO SCH (20:18)
[2023-09-02] MEDS: AMIODARONE HCL 200 MG TAB PO SCH (20:18)
[2023-09-02 20:50] LABS: Urine Bacteria <20 /HPF (<20)
[2023-09-02 21:23] LABS: Specific Gravity 1.012 (1.005-1.030); Urine Bilirubin NEGATIVE (Negative); Urine Blood Trace (Negative); Urine Clarity Extremely Turbid (Clear); Urine Color Yellow (Yellow); Urine Glucose NEGATIVE (Negative); Urine Protein TRACE (Negative); Urine Urobilinogen 2+ (Normal)
[2023-09-03 07:43] LABS: Absolute Lymphocytes (CBC) 0.9 K/uL (0.7-4.9); Hematocrit 40.3 % (36.0-45.0); Lymphocytes % 12.4 % (15.3-44.8); MCV 87.2 fL (80-100); MPV 9.5 fL (7.6-11.3); Platelets 184 thou/uL (152-406); RBC Red Blood Cell Count 4.62 M/uL (3.86-4.86)
[2023-09-03] MEDS ORDERED: DILTIAZEM HCL 120 MG SR CAP PO SCH (08:00)
[2023-09-03 08:08] LABS: Prealbumin 15.2 mg/dL (20-40)
[2023-09-03 08:11] LABS: Magnesium 1.7 mg/dL (1.6-2.4)
[2023-09-03] MEDS: POLYETHYL GLY 3350 17 GM/DOSE PO SCH (08:20)
[2023-09-03] MEDS: CRANBERRY FRUIT EXTRACT 200 MG CAP PO SCH (08:20)
[2023-09-03] MEDS: FUROSEMIDE 20 MG TABLET PO SCH (08:36)
[2023-09-03] MEDS: AMIODARONE HCL 200 MG TAB PO SCH (11:00)
--- NOTE | 2023-09-03 13:39 | P.RH.PN ---
Estimated Length of Stay: 12 Expected Discharge Date: 09/14/23 Discharge Disposition Plan: Home Family Support: Yes Jail Goal: Mobility, Transfers, Self Care Vital Signs: Last Vital Signs Temp 97.2 F 09/03/23 08:00 Pulse 67 09/03/23 10:25 Resp 16 09/03/23 08:00 BP 101/62 09/03/23 10:25 Pulse Ox 100 09/03/23 08:00 Laboratory: Laboratory Last Values WBC 7.10 thou/uL (4.3-10.9) 09/03/23 07:08 RBC 4.62 M/uL (3.86-4.86) 09/03/23 07:08 Hgb 13.3 g/dL (12.0-15.0) 09/03/23 07:08 Hct 40.3 % (36.0-45.0) 09/03/23 07:08 MCV 87.2 fL (80-100) 09/03/23 07:08 MCH 28.8 pg (27.0-35.0) 09/03/23 07:08 MCHC 33.0 g/dL (32.0-36.0) 09/03/23 07:08 RDW 15.9 % (12.1-15.2) H 09/03/23 07:08 Plt Count 184 thou/uL (152-406) 09/03/23 07:08 MPV 9.5 fL (7.6-11.3) 09/03/23 07:08 Neutrophils % 73.6 % (41.7-73.7) 09/03/23 07:08 Lymphocytes % 12.4 % (15.3-44.8) L 09/03/23 07:08 Monocytes % 9.7 % (3.3-12.3) 09/03/23 07:08 Eosinophils % 3.6 % (0-4.4) 09/03/23 07:08 Basophils % 0.7 % (0-1.3) 09/03/23 07:08 Absolute Neutrophils 5.2 K/uL (1.8-8.0) 09/03/23 07:08 Absolute Lymphocytes 0.9 K/uL (0.7-4.9) 09/03/23 07:08 Absolute Monocytes 0.7 K/uL (0.1-1.3) 09/03/23 07:08 Absolute Eosinophils 0.3 K/uL (0-0.5) 09/03/23 07:08 Absolute Basophils 0.1 K/uL (0-0.5) 09/03/23 07:08 Sodium 134 mEq/L (136-145) L 09/03/23 07:08 Potassium 4.0 mEq/L (3.5-5.1) 09/03/23 07:08 Chloride 97 mEq/L (98-107) L 09/03/23 07:08 Carbon Dioxide 32 mEq/L (21-32) 09/03/23 07:08 Anion Gap 9.0 mEq/L (5.0-15.0) 09/03/23 07:08 BUN 32 mg/dL (7-18) H 09/03/23 07:08 Creatinine 1.77 mg/dL (0.55-1.02) H 09/03/23 07:08 Est GFR (CKD-EPI) 29 ml/min (=/>90) L 09/03/23 07:08 Glucose 94 mg/dL (74-106) 09/03/23 07:08 POC Glucose 95 mg/dL (65-120) 09/03/23 11:33 Calcium 8.8 mg/dL (8.5-10.1) 09/03/23 07:08 Magnesium 1.7 mg/dL (1.6-2.4) 09/03/23 07:08 Albumin 3.0 g/dL (3.4-5.0) L 09/03/23 07:08 Prealbumin 15.2 mg/dL (20-40) L 09/03/23 07:08 Urine Color Yellow (Yellow) 09/02/23 19:45 Urine Clarity Extremely turbid (Clear) H 09/02/23 19:45 Urine pH 6.0 (5.0-7.0) 09/02/23 19:45 Ur Specific Rawlings 1.012 (1.005-1.030) 09/02/23 19:45 Glucose (UA)(Auto) Negative (Negative) 09/02/23 19:45 Urine Ketones Negative (Negative) 09/02/23 19:45 Urine Blood Trace (Negative) H 09/02/23 19:45 Urine Nitrite Negative (Negative) 09/02/23 19:45 Urine Bilirubin Negative (Negative) 09/02/23 19:45 Urine Urobilinogen 2+ (Normal) H 09/02/23 19:45 Ur Leukocyte Esterase 500 Nereyda/uL (Negative) H 09/02/23 19:45 Urine RBC 5-10 /HPF (None Seen) H 09/02/23 19:45 Urine WBC 20-50 /HPF (<5) H 09/02/23 19:45 Ur Squamous Epith Cells <5 /HPF (None Seen) 09/02/23 19:45 Amorphous Crystals Trace /HPF (None Seen) 09/02/23 19:45 Urine Bacteria <20 /HPF (<20) 09/02/23 19:45 Hyaline Casts 0-5 /LPF (None Seen) 09/02/23 19:45 Urine Culture Reflexed Reflexed 09/02/23 19:45 Urine Total Protein Trace (Negative) H 09/02/23 19:45 Weight: 175 lb 6.4 oz Physician Update: Labs reviewed and are stable. Mildly low Na, and Cl, elevated cafeteria cook 1.77. Nepro for low prealbumin. CGA for bed mobility, min assistance for supint to sit, transfers min to mod assistance. 135' with min assist and 5 steps with min assistance. Decreased shoulder flexion due to arthritis. Min assistance bathing, lower body dressing and grooming. Summary: Patient's care plan and terminal supervisor goals have been reviewed and revised as necessary. Please see the Rehabilitation Signature page for all necessary signatures.
[2023-09-03] MEDS: LOPERAMIDE HCL 2 MG CAPSULE PO PRN (14:57)
[2023-09-03] MEDS: NEPRO SHAKE 237 ML CAN PO SCH (20:09)
--- NOTE | 2023-09-04 02:18 | HP ---
Date of Admission: 09/02/2023 Time Of Service: 2 p.m. Chief Complaint: "I have shortness of breath and became weak." History Of Present Illness: Ms. Henriquez is a 78-year-old patient with hypertension, noninsulin-dependen t diabetes mellitus, who came to [facility] on August 27 with shortness of breath and worsen ing swelling in the lower extremities over a week. She was seen 2 years ago and diagnosed with CHF. However, she did worsen upon arrival. Blood work showed elevated creatinine of 1.53, BUN elevated t o 23, D-dimer of 1068 with BNP elevated at 19,442. CT angiogram of the chest showed no evidence of p ulmonary embolus, but moderate to significant CHF pattern. She had 3+ pitting edema in the lower ext remities. Echocardiogram showed significantly reduced left ventricular ejection fraction of less colton n 20. She was treated with amiodarone, Eliquis, and BiPAP. She received that from August 26 to . She was transitioned to 4 L of oxygen by nasal cannula. She had oxygen saturations around 88 . She was doing well and actually improved oxygen saturation around 94% with 2 L of oxygen via nasal cannula. She also, however, developed distal weakness in the lower extremities and upper extremitie s and required nzkodkui-gj-hamjgbg assistance to perform activities of daily living to transfer and b egin to ambulate. This was her prior level of functioning and she was therefore felt to b e a good candidate for inpatient rehabilitation where she will receive physical, occupational, and sp eech therapy and management of her comorbid conditions. Past Medical History: As noted above. Past Surgical History: Tubal ligation. Allergies: NO KNOWN DRUG ALLERGIES. Current Medications: Albuterol nebulizer 2.5 mg every 6 hours as needed, Cordarone 100 mg twice sumanth y, Eliquis 5 mg twice daily, calcitriol 0.25 mg daily, Lasix 20 mg daily, shake 237 mL twi ce daily, Atrovent nebulizer 0.5 mg nebulizer every 6 hours as needed, Imodium 2 mg every 4 hours, me latonin 3 mg at bedtime, Lopressor 25 mg twice daily, Zofran 4 mg every 6 hours as needed, Senokot-S 2 at bedtime. Family History: Noncontributory. Laboratory Studies: White blood cell count 7.1, hemoglobin 13.3, platelets 184. Sodium 134, potassi um 4.0, chloride 98, carbon dioxide 32, BUN also 32, creatinine 1.77, glucose 94, calcium 8.8, magnes ium 1.7, albumin 3.0, prealbumin 15.2. Urinalysis shows extreme turbidity, trace blood, 2+ urobilino gen, 500 esterase, white blood cells 20 to 50, bacteria less than 20, trace of protein. Current Level Of Functioning: Currently supervision for eating, oral hygiene. Moderate assistance f or toileting, toilet hygiene. Maximum assistance for bathing. Supervision for upper body dressing. Moderate assistance for lower body dressing. Moderate assistance for donning and doffing shoes. Ro lling right to left, left to right moderate assistance. Transfers from bed to chair to toilet to aiden wer moderate assistance. Ambulation, she covered 40 feet with moderate assistance. Review of Systems: She did have some diarrhea after eating lunch. She has Imodium now on board. Otherwise, shortness o f breath with some swelling in the lower extremities. No fevers, no chills. Mild myalgias, arthralg ias. No rash. No psychiatric complaints. Physical Examination: Vital Signs: Blood pressure 101/62, pulse 67, respiratory rate 16, temperature 97.3, oxygen saturati on 100%. General: Ms. Henriquez is resting in bed. She is in no acute distress. Daughter is at bedside. HEENT: She is normocephalic, atraumatic. Sclerae anicteric. Oropharynx pink and moist. Lungs: She has decreased breath sounds bilaterally. Extremities: 1 to 2+ pitting edema in the lower extremities. Neurologic: Otherwise, in terms of cranial nerves, she has no focal deficits. On motor, arms and le gs, no focal neurological deficits noted in the extremities. Rehab And Medical Assessment And Plan: She is admitted to the inpatient rehabilitation unit with imp airment category 06, neurological condition. Her impairment group code is 03.8, neuromuscular disord er. 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 Comorbidities: Renal injury, decreas ed mobility, decrease in physical functioning, diastolic congestive heart failure, diabetes mellitus type 2, dysphagia, elevated troponins, hypertension, hyperglycemia, hyponatremia, diffuse weakness, a trial fibrillation with rapid ventricular response. Plan: 1.She will have physical, occupational, and speech therapy for 3-1/2 hours, 5 of 7 days. 2.She will have medications for comorbid conditions continued including for COPD. She will have the nebulizers as noted, amiodarone for heart rate control, vitamin D for low vitamin D level, Lasix for fluid management, Robitussin for cough, Imodium for her diarrhea, Lopressor for heart rate control, melatonin for insomnia, Zofran for nausea. Comorbidities That Are Impacting Her Rehabilitation: The CHF issues will be monitored by repeat ches t x-ray, daily weights, calf circumference to see if she is gaining weight, which may be fluid retent ion and Lasix may be adjusted. Electrolytes will be followed as well. Otherwise, risk of deep vein thrombosis is there. If need be, she will have SCDs in place and she will have as well the Eliquis, which is on board 5 mg twice daily. Rehab Specific Plan: 1.Ms. Henriquez will have physical, occupational, and speech therapy for 3-1/2 hours, 5 of 7 days to impr ove her ability to transfer from bed to chair to toilet to shower, to mobilize wheelchair 250 feet, t o be able to ambulate 250 feet with a rolling walker up and down 10 steps and all with modified indep endence. Also to perform her expression, her comprehension, and her cognitive functioning with modif ied independence. 2.Ms. Henriquez has a good understanding of the process of admission to the inpatient rehabilitation [facility], in that she will benefit from the multidisciplinary approach to her care. If need be, assistan ce from the pulmonary service, hospitalist service, and cardiac service will be consulted. She will have 24 hours a day intermediate and physician evaluation on a daily basis along with charge nurse to address her discharge needs such as wheelchair, walker, and potential home health or skilled nurs ing. Barriers To Discharge: Currently, her CHF may worsen. However, at this point, it is managed with fl uid management, Lasix, which is her diuretic, but she will not be over diuresed and the balance will be sought for the patient going home, in addition fluid restriction if need be. However, the comorbi dities do not negatively impact her. Estimated Length Of Stay: About 12 days. Disposition: Home with family and home health. Prognosis: Good. Rehab Goals: 1.Become independent with upper and lower body dressing, toileting, showering, donning and doffing s hoes. 2.Independently ambulate 250 feet with a rolling walker. 3.Independently propel a wheelchair 250 feet. 4.Independently go up and down 10 steps with bilateral handrails. 5.Independently perform cognitive functioning including medication management and all safety awarene ss issues. The above goals were reviewed with Ms. Henriquez and she is agreement. By signing this document, I acknowledge I personally performed a full physical examination on Ms. Luz johnston no later than 24 hours after her admission to the inpatient rehabilitation facility and determined that she is able to tolerate the above course of treatment at an intensive level for a reasonable per iod of time. A detailed individualized plan of care for her will be completed by hospital day 4 base d on the preadmission screen, history and physical and therapy evaluations. ROSEY Voice ID: [id number]
[2023-09-04] MEDS: guaiFENesin 100 MG/5 ML UCUP PO PRN (03:35)
[2023-09-04] MEDS ORDERED: POLYETHYL GLY 3350 17 GM/DOSE PO PRN (07:01)
[2023-09-04] MEDS: CALCITROL 0.25 MCG CAP PO SCH (09:57)
[2023-09-04] MEDS: AMIODARONE HCL 200 MG TAB PO SCH (14:07)
[2023-09-04] MEDS ORDERED: INSULIN REGULAR (HUMAN) 100 UNIT/ML SQ SCH (16:30)
[2023-09-04] MEDS: MAGNESIUM OXIDE 400 MG TAB PO SCH (19:58)
[2023-09-04] MEDS: INSULIN REGULAR (HUMAN) 100 UNIT/ML SQ SCH (19:59)
[2023-09-05] MEDS: MELATONIN 3 MG TABLET PO PRN (19:54)
[2023-09-06] MEDS: DOCUSATE NA/SENNA CONC 1 TAB PO SCH (08:04)
--- NOTE | 2023-09-06 08:58 | RAD REPORT ---
EXAM DESCRIPTION: RADChest Single View09/06/2023 8:27 am CLINICAL HISTORY: ff up chf COMPARISON: Chest Single View dated 09/01/2023; Chest Single View dated 08/27/2023; Chest Single View d ated 08/25/2023; Chest For Pe Angio dated 08/25/2023 TECHNIQUE: Portable AP view of the chest. FINDINGS: Stable mild central interstitial prominence which may relate to mild central congestion/CH F. Elevation of the left hemidiaphragm again seen with adjacent atelectasis. No focal airspace opacit y. No pneumothorax or effusion. Stable cardiomegaly. Mediastinal contours are unremarkable. IMPRESSION: Stable findings, as above.
--- NOTE | 2023-09-06 09:25 | P.CNS ---
Date of Consult: 09/06/23 Reason for Consult: painful toenails Allergies No Known Allergies Allergy (Unverified 08/25/23 17:05) Home Medications: Furosemide [Lasix*] 1 tab PO BID 08/26/23 Metformin ER [Glucophage ER*] 1 tab PO DAILY 08/26/23 Albuterol Neb [Proventil 0.083% Neb Soln] 2.5 mg NEB [id number] PRN amp 09/02/23 Amiodarone HCl [Cordarone*] 200 mg PO BID tab 09/02/23 Apixaban [Eliquis] 5 mg PO BID 09/02/23 Calcitrol [Rocaltrol*] 0.25 mcg PO Q48H cap 09/02/23 Ipratropium Neb [Atrovent*] 0.5 mg NEB [id number] PRN amp 09/02/23 Metoprolol Tartrate [Lopressor*] 25 mg PO BID 6AM 6PM tab 09/02/23 ePHEDrine sulfate [Bronkaid Max] 25 mg PO BID 09/02/23 - Past Medical/Surgical History Diabetic: Yes -: Hypertension -: Tnj-vzikibe-ltyanbcsf diabetes -: hyperlipedema -: asthma -: CHF -: COPD -: Tubal ligation Psychosocial/ Personal History: Lives at home with family - Social History Smoking Status: Current every day smoker Alcohol use: No CD- Drugs: No Caffeine use: No Place of Residence: Home Review of Systems 10-point ROS is otherwise unremarkable Physical Examination Temp Pulse Resp BP Pulse Ox 96.8 F 60 19 108/56 L 96 09/06/23 06:42 09/06/23 08:05 09/06/23 06:42 09/06/23 08:05 09/06/23 06:42 General: Alert, In no apparent distress, Oriented x3 Cardiovascular: No edema, Abnormal pulses (0/4 dp/pt pulses bilateral) Capillary refill: <2 Seconds Musculoskeletal: No clubbing, No swelling, No contractures, No erythema, No tenderness, No warmth Integumentary: No rashes, No breakdown, No significant lesion, No tenderness/swelling, No erythema, No warmth, No cyanosis, Other (Thickened hypertrophic nails with subungual debris x 10) Neurological: Sensation intact - Problems (1) Tinea unguium Current Visit: Yes Status: Acute (2) Generalized atherosclerosis Current Visit: Yes Status: Acute Conclusions/Impression: Mechanical debridment of nails at bedside x 10
[2023-09-06] MEDS ORDERED: EPHEDRINE PO PRN (19:47)
[2023-09-06] MEDS ORDERED: GUAIFENESIN PO PRN (19:47)
[2023-09-06] MEDS: levoFLOXacin 500 MG TAB PO SCH (20:31)
[2023-09-06 23:49] LABS: Specific Gravity 1.013 (1.005-1.030); Urine Bacteria None Seen /HPF (<20); Urine Bilirubin NEGATIVE (Negative); Urine Blood Negative (Negative); Urine Clarity Clear (Clear); Urine Color Light-Yellow (Yellow); Urine Glucose NEGATIVE (Negative); Urine Protein NEGATIVE (Negative); Urine RBC <5 /HPF (None Seen); Urine Urobilinogen Normal (Normal)
--- NOTE | 2023-09-07 20:09 | PN ---
Date of Progress Note: 09/07/2023 Time Of Service: 2:25 p.m. Subjective: Ms. Henriquez is in bed. She said she had a lot of therapy today and she is somewhat tired a fter therapy, but was able to complete what she needed to do. She does have oxygen via nasal cannula , but when therapy was done it was without oxygen and her saturation remained around 94. Review of Systems: No fevers or chills. No nausea, vomiting, myalgias, arthralgias, rash, headache, weight change. She feels weakness. Physical Examination: Vital Signs: Blood pressure 132/56, pulse of 82, respiratory rate 18, temperature 97.2, ox saturatio n 97%. She does have some low blood pressures earlier today and her diuretic was decreased. She had orthostatic changes where sitting blood pressure 100/61, pulse of 68 and standing blood pressure inc reased to 122/56, pulse of 73. HEENT: Otherwise she is normocephalic, atraumatic. Sclerae are anicteric. Oropharynx pink and mois t. Neck: Supple. Chest: Clear. Heart: Regular. Extremities: She does have diffuse proximal more than distal weakness in lower extremities with slig ht improvement. Laboratory Studies: Blood glucose ranged from 117 to 146. Sodium 135, potassium 4.0, chloride 98, c arbon dioxide 34, creatinine 1.73 on the 14 and will be repeated in the morning. Beta natriuretic peptide elevated at 10,382 on the 14th. Calcium 9.0. Urinalysis on the was significantly abnor mal, but a repeat done on the completely normal. Her urine did grow Pseudomonas aeruginosa and E coli and again a repeat is done. She likely has a potential for colonization. E coli is pansensit ronni. She will have continued cranberry pills and significant oral hydration given her CHF within par ameters. Medications: Albuterol nebulizer 2.5 mg 6 hours as needed, Cordarone 100 mg twice daily, Eliquis 5 m g twice daily, Rocaltrol 0.25 mg every 48 hours, Nepro shake 237 mL twice daily, Lasix now 20 mg sumanth y, perphenazine 200 mg every 4 hours as needed, insulin sliding scale, Atrovent 0.5 mg every 6 hours as needed, Imodium 2 mg every 4 hours as needed, magnesium oxide 400 mg twice daily, melatonin 3 mg a t bedtime, Lopressor 25 mg twice daily, Zofran 4 mg q.6 hours as needed, Senokot S 1 twice daily. Progress Made With Physical And Occupational Therapy: Today with her occupational therapy, she was i ndependent with supine to sit transfers, standby with edge of bed to stand pivot transfer to wheelcha ir, independent with toilet hygiene, clothing management, upper body dressing independent, lower body dressing supervision. Did engage in wheelchair pushups 4 x 5 sets and standing to exam stand sets w ith grab bars. In terms of speech, recall 3 of 4 unrelated pictures of 5 minutes on first attempt an d 4 of 4 after 5 minutes. Physical Therapy, she did ambulate with a rolling walker 125 feet and anot her 100 feet with contact guard assistance. She was able to go up and down 10 steps with standby ass istance using bilateral handrails. Ms. Henriquez is making good progress overall with physical, occupational, and speech therapy. Assessment: Ms. Henriquez is a 78-year-old patient admitted to the rehabilitation unit with CHF myopathy and she is recovering her strength well and being able to do the mobilization now without oxygen. Sh esha has renal insufficiency with chronic diastolic congestive heart failure, diabetes mellitus, elevate d troponins, elevated beta natriuretic peptide, hypertension, hyponatremia, diffuse weakness, and atr ial fibrillation with history of rapid ventricular response. Plan: 1.Continue with physical, occupational, speech therapy for 3-1/2 hours, 5/7 days. 2.Continue with comorbid condition medications as noted above including for COPD, Lasix for fluid ma nagement, but that will be held for systolic blood pressure is being low and continue with our DVT pr ophylaxis and stroke risk reduction using Eliquis 5 mg twice daily, Nepro shake for her malnutrition, ipratropium nebulizer for COPD, Senokot-S for constipation, Zofran for nausea. 3.She will again continue with physical, occupational, and speech therapy for 3-1/2 hours, 5/7 days. Comorbidities That Continue To Impact Her Rehabilitation: Currently, she has some very low blood pre ssures likely from over diuresis. Lasix has been cut back. Fluid management within the I's and O's being monitored, daily weights being requested as well. We will have an interval chest x-ray as the most recent chest x-ray done on the did suggest unchanged stable pattern, but there was mild int erstitial prominence with mild central congestion and therefore we will encourage incentive spirometr y. LB/MODL Voice ID: [id number] Report ID: [id number]
[2023-09-08] MEDS: FUROSEMIDE 20 MG TABLET PO SCH (07:44)
--- NOTE | 2023-09-08 20:30 | PN ---
Date of Progress Note: 09/08/2023 [id number] Progress Note. Time Of Service: 1:35 p.m. Subjective: Ms. Henriquez is sitting on side of the bed and she said she feels somewhat tired, but has go ne through all of the therapy for the morning session and mostly off oxygen by nasal cannula. Objective: No fevers, chills, nausea, vomiting, myalgias, arthralgias, rash, headache, weight change . No psychiatric complaints. No gastrointestinal or genitourinary complaints. Physical Examination: Vital Signs: Blood pressure 107/63, pulse 70, respiratory rate 16, temperature 97.3. She did have s ome low blood pressures earlier in the day around 6 o'clock in the morning. While lying, blood press ure 91/52, pulse of 64. While sitting, blood pressure 96/57, pulse 59, and while standing, blood pre ssure 92/61, pulse of 69. She did have some fatigue with that. Otherwise in terms of examination, n eurologic: No focal neurological deficits. Mild diffuse weakness of lower extremities. She is using incentive spirometry, but not very conscientiously. Laboratory Studies: Blood sugars ranged from 111-159. Medications: Her medications have been reviewed and remain unchanged. Progress Made With Physical, Occupational, And Speech Therapy: Today, with physical therapy, she amb ulated 250 feet, another 100 feet 3 times, was on the room air and oxygen saturation was maintained b etween 90% and 100%. She did, however, on occasion the oxygen saturation dropped to 87% after she co mpleted 2 laps. With occupational therapy, she tolerated 5 minutes of standing, bilateral upper extr emity aerobic exercises, multiple rest breaks were required to complete a 10 sets of stand s with multiple rest break. Oxygen saturation remained above 93%. In terms of speech, she recalled 4/4 unrelated pictures after 7 minutes without cues. Convergent thinking gives 80% accuracy and mode rate cues, she sequenced four words into logical sequencing with 70% accuracy and maximum verbal cues . Ms. Henriquez is making good overall progress with physical, occupational, speech therapy. Assessment: Ms. Henriquez is a 78-year-old patient admitted to the rehabilitation unit with CHF myopathy from which she is beginning to recover fairly well. She, actually, most of the time, do not require oxygen. However, if she does 500 feet of walking, the oxygen saturation did drop to 87%. She has di astolic congestive heart failure, diabetes mellitus, elevated troponins, which improved, hypertension , hyponatremia, diffuse weakness, atrial fibrillation with rapid ventricular response. Plan: 1.Continue physical, occupational, and speech therapy for 3.5 hours, 5 of 7 days. 2.Her multiple comorbid conditions are managed by continuing medications including Eliquis for DVT p rophylaxis, Senokot for constipation and Zofran for nausea. She has ipratropium nebulizer for COPD. Her blood pressure medications will be held for systolics less than 120 and she is doing well with t hat. If need be, fluid will be given. The patient is encouraged to drink some water and may receive some normal saline gently. Comorbidities That Continue To Impact Rehabilitation: She does have low blood pressures with congest ronni heart failure and is at risk for volume overload. Her recent chest x-ray showed stable findings. The patient was encouraged to use incentive spirometry, but she may again require mild hydration fr om the IV normal saline if she is not able to manage to increase oral intake of water. LB/MODL Voice ID: [id number] Report ID: [id number]
[2023-09-09 07:38] LABS: Absolute Lymphocytes (CBC) 1.2 K/uL (0.7-4.9); Hematocrit 38.9 % (36.0-45.0); Lymphocytes % 16.4 % (15.3-44.8); MCV 86.6 fL (80-100); MPV 9.4 fL (7.6-11.3); Platelets 261 thou/uL (152-406); RBC Red Blood Cell Count 4.49 M/uL (3.86-4.86)
[2023-09-09 08:00] LABS: Albumin 3.2 g/dL (3.4-5.0); Magnesium 2.5 mg/dL (1.6-2.4); Potassium 4.7 mEq/L (3.5-5.1); Prealbumin 18.8 mg/dL (20-40)
--- NOTE | 2023-09-09 19:23 | PN ---
Date of Progress Note: 09/09/2023 Time Of Service: 1:35 p.m. Subjective: Ms. Henriquez is sitting on side of the bed. Family in the room. She is without oxygen via nasal cannula and is showing no evidence of any shortness of breath at this point. She denies any co mplaints and is happy to be ready for home in not too distant time. Review of Systems: No fevers or chills. No significant myalgias or arthralgias, although she did have some loose stools around 3 today and some mild upset stomach and she is addressed with Imodium and that has subsided. Physical Examination: Vital Signs: Blood pressure 102/55, pulse 67, respiratory rate 16, temperature 97.5. She did have o rthostatic blood pressures while lying blood pressure 91/50, pulse 66, while sitting blood pressure 9 6/51, pulse 109, and while standing blood pressure 101/64, pulse 67. HEENT: Otherwise, she is normocephalic, atraumatic. Sclerae anicteric. Oropharynx is moist. Neck: Supple. Chest: Clear. Extremities: Show no significant edema or cyanosis. Laboratory Studies: Complete blood count with differential is essentially normal. Her sodium 135, p otassium 4.7, chloride 100, carbon dioxide 31, BUN 48, creatinine 2.15, prealbumin 18.8. Note, creat inine did increase slightly from 1.73 on the 14th to 2.15 reflecting some dehydration. Blood sugars range from 105 to 141. X-ray/imaging: No new x-rays or imaging. Medications: She is on albuterol nebulizer, Cordarone for heart rate control, for atrial fibrillatio n, Eliquis 5 mg twice daily, Lasix 20 mg daily will be cut to 10 mg daily. She is on guanfacine. Sh e is receiving sliding scale insulin. She has Imodium for diarrhea as mentioned, melatonin for insom ida, metoprolol for heart rate control, Senokot S will be held as she has some loose stools. Progress Made With Physical, Occupational, And Speech Therapy: Today with physical therapy, ambulati ng with a rolling walker 250 feet with standby assistance and she did that twice, [id number] transf ers done independently, [id number]-oq-[id number] transfers done independently. With occupational therapy, indep endent with toilet hygiene, upper and lower body dressing, bathing, lower body dressing also independ ent. She is somewhat impulsive. The staff notes with speech therapy, BIMS score, she scored 15/15, on the SLUMS score 28/30 indicating normal cognitive functioning. Ms. Henriquez is making excellent progress with her speech therapy and physical and occupational therapy. She does appear to be somewhat dehydrated, Lasix cut back some, one to half dosage. Assessment: Ms. Henriquez is a 78-year-old patient in the rehabilitation unit with CHF myopathy and she i s recovering very well. She is ambulating now without any significant need for oxygen, diastolic con gestive heart failure managed, diabetes mellitus managed, hypertension and hypotension still slightly uncontrolled. She has atrial fibrillation addressed with heart rate control. Plan: 1.Continue physical, occupational, speech therapy. 2.Again cut back her diuretic to half dose. 3.We will encourage some gentle hydration and we will continue DVT prophylaxis and risk of stroke wi th Eliquis full strength and for her loose stools, Imodium to be in place and all other comorbidities are addressed by continuing medications noted. Comorbidities That Continue To Impact Rehabilitation: Currently, she has loose stools, which are imp roving with Imodium and her creatinine has bumped up. We will cut back on her diabetic dosage. LB/MODL Voice ID: [id number] Report ID: [id number]
[2023-09-09] MEDS ORDERED: MAGNES/ALUMIN/SIMET 30ML UCUP PO PRN (20:22)
[2023-09-10 06:47] VITALS: BP 109/58; TEMP 97.3
[2023-09-10] MEDS: FUROSEMIDE 20 MG TABLET PO SCH (08:27)
[2023-09-10 10:01] VITALS: O2SAT 94
--- NOTE | 2023-09-24 03:47 | DS ---
Date of Discharge: 09/10/2023 Discharge Diagnoses: Congestive heart failure related myopathy, renal insufficiency, decrease in phy sical functioning, diabetes mellitus type 2, dysphagia, hypertension, hyponatremia, atrial fibrillati on with rapid ventricular response. Discharge Condition: Good. Discharge Activity: Weightbearing as tolerated. Diet: Diabetic diet. Allergies: NO KNOWN DRUG ALLERGIES. Medications: Amiodarone 100 mg twice daily, ephedrine sulfate 25 mg twice daily, Lopressor 25 mg twi ce daily, Rocaltrol 0.25 mcg every 48 hours, Eliquis 5 mg twice daily, guaifenesin 10 mL every 6 hour s as necessary, Zofran 4 mg every 6 hours, melatonin 3 mg at bedtime as needed, magnesium oxide 400 m g twice daily, Imodium 2 mg every 4 hours as needed, Lasix 10 mg daily, Senokot-S 1 at bedtime, cranb erry fruit extract 200 mg twice daily. Laboratory Studies: Complete blood count with differential is completely normal except for RDW being slightly elevated to 16.2. Basic metabolic panel shows sodium 135, potassium 4.7, chloride 100, car bon dioxide 31, BUN 48, creatinine 2.15, glucose ranged from 105 to 185, calcium 9.1, magnesium 2.5, albumin 3.2, prealbumin 18.8. X-ray/imaging: A chest x-ray was done on 09/06/2023. The study showed stable findings of mild centr al interstitial prominence, may relate to mild central congestive heart failure. There is elevation of the left hemidiaphragm with adjacent atelectasis. No pneumothorax or effusion. Stable cardiomega ly. The study was done on 09/06/2023 and compared to the studies done on 08/25/2023, 08/27/2023, and 09/01/2023. Synopsis Of Events That Led To Admission: Ms. Henriquez is a 78-year-old patient with multiple problems a s noted above, who to [facility] with 5 days of shortness of breath and worsening swelling i n lower extremities. She was seen and evaluated, found to have creatinine elevated to 1.53 with D-di mers up to 1068. BNP elevated at 19,442. Angiogram study of the chest showed no evidence of pulmona ry embolus, but there was moderate to significant CHF found. She also had 3+ pitting edema in lower extremities. Her echocardiogram showed reduced left ventricular ejection fraction of less than 20%. She was treated with fluid management, amiodarone, Eliquis, and BiPAP. She was admitted from to August 28 with oxygen up to 4 L via nasal cannula. She was eventually weaned down to 2 L with oxygen saturation around 94%. During her hospitalization, she felt significant weakness in the lowe r extremities and upper extremities and required moderate to maximum assistance to perform activities of daily living, to transfer and ambulate. As this was well below her prior level of functioning, s he was therefore felt to be a good candidate for inpatient rehabilitation where she will receive phys ical, occupational, and speech therapy and management of her active comorbid conditions. Progress Made With Her Physical And Occupational Therapy Along With Speech Therapy: By her discharge for her CHF myopathy, she was able to ambulate 250 feet within functional limits with a rolling walk er. She was able to go up and down 15 steps with excellent balance using bilateral handrails. She s elf-propelled a wheelchair 250 feet with modified independence. She did meet all of her short-term g oals and it is recommended she continue working with physical therapy to continue to improve when she is discharged. With occupational therapy, independent with tub and shower transfer, eating independe nt, grooming independent, bathing independent, upper body dressing independent, lower body dressing i ndependent, toileting independent. She did meet all of her goals with occupational therapy and was d ischarged home with all durable medical equipment needs met. With speech therapy, cognition __ from independent down to minimum assistance level, comprehension independent, expression independe nt, intelligibility 100%. She did improve the SLUMS score from 20 to 28 indicating within normal vaughn its and she maintained her BIMS score at 15, which is also normal. Followup: With primary care physician as scheduled. VENTURA/BRUNILDA Voice ID: [id number] Report ID: [id number]
== END 2023-09-10 12:10 | disposition home health service (06) | DRG 92 ==
LOC: 5TH 16:00
PROVIDERS: ADMIT Psychiatry & Neurology Neurology with Special Qualifications in Child Neurology; ATTEND Psychiatry & Neurology Neurology with Special Qualifications in Child Neurology
PROC: 0HBRXZZ Excision of Toe Nail, External Approach (ICD-10-PCS; principal; 2023-09-06)
PROC: 0HBRXZZ Excision of Toe Nail, External Approach (ICD-10-PCS; 2023-09-06)
PROC: 0HBRXZZ Excision of Toe Nail, External Approach (ICD-10-PCS; 2023-09-06)
PROC: 0HBRXZZ Excision of Toe Nail, External Approach (ICD-10-PCS; 2023-09-06)
PROC: 0HBRXZZ Excision of Toe Nail, External Approach (ICD-10-PCS; 2023-09-06)
PROC: 0HBRXZZ Excision of Toe Nail, External Approach (ICD-10-PCS; 2023-09-06)
PROC: 0HBRXZZ Excision of Toe Nail, External Approach (ICD-10-PCS; 2023-09-06)
PROC: 0HBRXZZ Excision of Toe Nail, External Approach (ICD-10-PCS; 2023-09-06)
PROC: 0HBRXZZ Excision of Toe Nail, External Approach (ICD-10-PCS; 2023-09-06)
PROC: 0HBRXZZ Excision of Toe Nail, External Approach (ICD-10-PCS; 2023-09-06)
DX: G72.89 Other specified myopathies (principal); E87.1 Hypo-osmolality and hyponatremia; I50.30 Unspecified diastolic (congestive) heart failure; R13.10 Dysphagia, unspecified; I10 Essential (primary) hypertension; E11.65 Type 2 diabetes mellitus with hyperglycemia; I48.91 Unspecified atrial fibrillation; J44.9 Chronic obstructive pulmonary disease, unspecified; F17.200 Nicotine dependence, unspecified, uncomplicated; B35.1 Tinea unguium; K59.00 Constipation, unspecified
CPT/HCPCS: 36415; 71045; 80048; 81001; 82040; 82947; 83735; 83880; 84134; 85025; 87077; 87086; 87088; 87186; 92523; 94010; 97110; 97116; 97129; 97163; 97165; 97530; 97542